=== PATIENT | male | born 1945 | race Caucasian/White ===

== ENCOUNTER → 2018-02-17 | Outpatient (CLI) | payer MEDICARE ==
--- NOTE | 2018-02-17 13:47 | ECHOS ---
STRESS ECHOCARDIOGRAM INDICATIONS: Chest pain. MEDICATIONS: Flomax, simvastatin. BASELINE HEART RATE: 57 BASELINE BLOOD PRESSURE: 135/75 MAXIMUM HEART RATE: 139 MAXIMUM BLOOD PRESSURE: 188/66 85% MPHR: 127 100% MPHR: 149 METS: 10.3 MAXIMUM STAGE REACHED: 3 TOTAL EXERCISE TIME: 9:00 CLINICAL INFORMATION: Baseline rhythm is sinus mechanism, rate 57, normal axis and intervals, cannot exclude inferior wall myocardial infarction. Baseline blood pressure 135/75 mmHg. Patient exercised on Rosales protocol for 9 minutes reaching peak rate of 139 beats per minute which is equal to 93% maximum predicted heart rate. Peak blood pressure 188/66 mmHg. Test was terminated due to fatigue. There was no chest pain. Electrocardiograph monitoring revealed rare PACs and PVCs. There was no evidence of diagnostic ischemic ST deviation. FINDINGS: Baseline echocardiogram revealed normal wall motion. At peak exercise, there was normal wall motion augmentation with no hypokinesis or dyskinesis. CONCLUSION: 1. Good exercise tolerance with normal cardiac response to exercise. 2. Normal stress echocardiogram with no evidence of stress-induced ischemia. MMODL / IJN: [id number] /
== END | disposition home or self-care (01) ==
LOC: RADNMMAIN 09:33
PROVIDERS: ATTEND Family Medicine
DX: R07.89 Other chest pain (principal)
CPT/HCPCS: 93351

== ENCOUNTER → 2018-07-22 | Outpatient (CLI) | payer MEDICARE ==
[2018-07-22 17:13] LABS: Appearance,BF Cloudy; Color,BF Yellow; Nucleated Cells, Body Fluid 910 /uL; RBC, Body Fluid 5990 /uL
[2018-07-22 17:44] LABS: Mononuclear WBC,Body Fluid 91 %; Polynuclear WBC,Body Fluid 9 %; Total Cells Counted,Body Fluid 100
== END | disposition home or self-care (01) ==
LOC: LABWHC1 15:35
PROVIDERS: ATTEND Orthopaedic Surgery
DX: M17.12 Unilateral primary osteoarthritis, left knee (principal)
CPT/HCPCS: 89050; 89060

== ENCOUNTER 2018-08-15 05:20 | Emergency (ER) | payer MEDICARE ==
--- NOTE | 2018-08-15 07:32 | ED ---
Extremity Problem HPI - General Chief complaint: Extremity Problem,Nontraumatic Stated complaint: left leg pain Time Seen by Provider: 08/15/18 07:10 Source: patient, RN notes reviewed Mode of arrival: ambulatory Limitations: no limitations - History of Present Illness Initial comments: This is a 73-year-old male with a recent history of pulmonary embolism in May of this year was on blood thinners who states he woke up this morning sharp pain in his left calf. He is concerned he may have developed a DVT. She does state the pain was sharp mid to lateral posterior calf/leg no other complaints such as fevers chills nausea vomiting sweats chest pain. 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 fib and a apparently was not in A. fib. MD Complaint: extremity pain - Related Data Home Medications Medication Instructions Recorded Confirmed Apixaban [Eliquis] 5 mg PO BID 07/24/18 08/15/18 Multivitamin [Multivitamins Adult 1 tab PO DAILY 07/24/18 08/15/18 Gummies] Propafenone HCl 150 mg PO BID 07/24/18 08/15/18 Semaglutide [Ozempic] 0.25 mg SQ WEEKLY 07/24/18 08/15/18 Sildenafil Citrate [Sildenafil] 20 mg PO DAILY PRN 07/24/18 08/15/18 Simvastatin [Zocor] 10 mg PO HS 07/24/18 08/15/18 Tamsulosin HCl [Flomax] 0.4 mg PO HS 07/24/18 08/15/18 metFORMIN HCL [Glucophage] 500 mg PO W/LUNCH 07/24/18 08/15/18 Allergies Allergy/AdvReac Type Severity Reaction Status Date / Time No Known Allergies Allergy Verified 08/15/18 07:44 Review of Systems ROS Statement: Those systems with pertinent positive or pertinent negative responses have been documented in the HPI. ROS Other: All systems not noted in ROS Statement are negative. Past Medical History Past Medical History: Atrial Fibrillation, Hyperlipidemia, Pulmonary Embolus (PE) History of Any Multi-Drug Resistant Organisms: None Reported Additional Past Surgical History / Comment(s): procedure to dissolve blood clots in the lung Past Anesthesia/Blood Transfusion Reactions: No Reported Reaction Past Psychological History: No Psychological Hx Reported Smoking Status: Never smoker General Exam - General Exam Comments Initial Comments: This a well-developed well-nourished awake alert oriented 3 male Limitations: no limitations General appearance: alert, in no apparent distress Head exam: Present: atraumatic, normocephalic, normal inspection Eye exam: Present: normal appearance, PERRL, EOMI. Absent: scleral icterus, conjunctival injection, periorbital swelling ENT exam: Present: normal exam, mucous membranes moist Neck exam: Present: normal inspection. Absent: tenderness, meningismus, lymphadenopathy Respiratory exam: Present: normal lung sounds bilaterally. Absent: respiratory distress, wheezes, rales, rhonchi, stridor Cardiovascular Exam: Present: regular rate, normal rhythm, normal heart sounds, other (Some extrasystoles noted). Absent: systolic murmur, diastolic murmur, rubs, gallop, clicks GI/Abdominal exam: Present: soft, normal bowel sounds. Absent: distended, tenderness, guarding, rebound, rigid Extremities exam: Present: normal inspection, full ROM, normal capillary refill. Absent: tenderness, pedal edema, joint swelling, calf tenderness Back exam: Present: normal inspection Neurological exam: Present: alert, oriented X3, CN II-XII intact Psychiatric exam: Present: normal affect, normal mood Skin exam: Present: warm, dry, intact, normal color. Absent: rash Course Vital Signs 08/15/18 05:25 Temperature 97.9 F Pulse Rate 70 Respiratory 20 Rate O2 Sat by Pulse 95 Oximetry Medical Decision Making - Medical Decision Making I did discuss findings with the patient will be discharged the presentation consistent with muscle spasm - Lab Data Result diagrams: 08/15/18 07:35 08/15/18 07:43 Lab Results 08/15/18 08/15/18 08/15/18 Range/Units 07:35 07:35 07:43 WBC 5.6 (3.8-10.6) k/uL RBC 4.47 (4.30-5.90) m/uL Hgb 13.8 (13.0-17.5) gm/dL Hct 42.2 (39.0-53.0) % MCV 94.4 (80.0-100.0) fL MCH 30.8 (25.0-35.0) pg MCHC 32.6 (31.0-37.0) g/dL RDW 13.3 (11.5-15.5) % Plt Count 195 (150-450) k/uL Neutrophils % 64 % Lymphocytes % 22 % Monocytes % 7 % Eosinophils % 4 % Basophils % 0 % Neutrophils # 3.6 (1.3-7.7) k/uL Lymphocytes # 1.3 (1.0-4.8) k/uL Monocytes # 0.4 (0-1.0) k/uL Eosinophils # 0.2 (0-0.7) k/uL Basophils # 0.0 (0-0.2) k/uL Sodium 140 (137-145) mmol/L Potassium 4.8 (3.5-5.1) mmol/L Chloride 109 H (98-107) mmol/L Carbon Dioxide 23 (22-30) mmol/L Anion Gap 8 mmol/L BUN 26 H (9-20) mg/dL Creatinine 1.23 (0.66-1.25) mg/dL Est GFR (CKD-EPI)AfAm 68 (>60 ml/min/1.73 sqM) Est GFR (CKD-EPI)NonAf 59 (>60 ml/min/1.73 sqM) Glucose 99 (74-99) mg/dL Calcium 9.1 (8.4-10.2) mg/dL Magnesium 2.2 (1.6-2.3) mg/dL Total Bilirubin 0.6 (0.2-1.3) mg/dL AST 16 L (17-59) U/L ALT 31 (21-72) U/L Alkaline Phosphatase 61 (38-126) U/L Total Protein 7.0 (6.3-8.2) g/dL Albumin 4.1 (3.5-5.0) g/dL - Radiology Data Radiology results: report reviewed (I did review the imaging and reports available no DVT), image reviewed Disposition Clinical Impression: Muscle spasm of calf Disposition: HOME SELF-CARE Condition: Good Instructions (If sedation given, give patient instructions): Muscle Spasm (ED) Is patient prescribed a controlled substance at d/c from ED?: No Referrals: Richard German MD [Primary Care Provider] - 1-2 days
[2018-08-15 07:48] LABS: Basophils % (A) 0 %; Eosinophils # (A) 0.2 k/uL (0-0.7); Eosinophils % (A) 4 %; HCT 42.2 % (39.0-53.0); HGB 13.8 gm/dL (13.0-17.5); Lymphocytes # (A) 1.3 k/uL (1.0-4.8); Lymphocytes % (A) 22 %; MCH 30.8 pg (25.0-35.0); MCHC 32.6 g/dL (31.0-37.0); MCV 94.4 fL (80.0-100.0); Mean Platelet Volume 7.2; Monocytes # (A) 0.4 k/uL (0-1.0); Monocytes % (A) 7 %; Neutrophils # (A) 3.6 k/uL (1.3-7.7); Neutrophils % (A) 64 %; Platelet Count 195 k/uL (150-450); RBC 4.47 m/uL (4.30-5.90); RDW 13.3 % (11.5-15.5); WBC 5.6 k/uL (3.8-10.6)
[2018-08-15 09:41] LABS: Albumin 4.1 g/dL (3.5-5.0); Calcium 9.1 mg/dL (8.4-10.2); Potassium 4.8 mmol/L (3.5-5.1); Total Bilirubin 0.6 mg/dL (0.2-1.3)
[2018-08-15 10:45] VITALS: BP 141/84; PULSE 61; RESP 18; TEMP 97.7
--- NOTE | 2018-08-15 15:21 | US ---
EXAMINATION TYPE: US venous doppler duplex LE LT DATE OF EXAM: 08/15/2018 8:20 AM COMPARISON: NONE CLINICAL HISTORY: Pain. SIDE PERFORMED: Left TECHNIQUE: The lower extremity deep venous system is examined utilizing real time linear array sonog juli with graded compression, doppler sonography and color-flow sonography. VESSELS IMAGED: External Iliac Vein (EIV) Common Femoral Vein Deep Femoral Vein Greater Saphenous Vein * Femoral Vein Popliteal Vein Small Saphenous Vein * Proximal Calf Veins (* superficial vessels) Left Leg: Negative for DVT Small posterior branch and large anterior branch both appear patent. IMPRESSION: No evidence of DVT at this time.
== END 2018-08-15 10:45 | disposition home or self-care (01) ==
LOC: EC 05:20
DX: M62.831 Muscle spasm of calf (principal); I49.1 Atrial premature depolarization; I48.91 Unspecified atrial fibrillation; E78.5 Hyperlipidemia, unspecified; Z79.01 Long term (current) use of anticoagulants; Z79.84 Long term (current) use of oral hypoglycemic drugs; Z79.899 Other long term (current) drug therapy; Z86.711 Personal history of pulmonary embolism
CPT/HCPCS: 36415; 80053; 83735; 85025; 93005; 99284

== ENCOUNTER 2019-12-10 07:06 | Day surgery (SDC) | payer MEDICARE ==
[2019-12-09 08:51] VITALS: BMI 28.8
[~2019-12-10 07:06] MED LIST: LACTATED RINGERS 1,000 ML IV SCH; LIDOCAINE 1% (10MG/ML) FOR IV START INTRADERMA PRN
[2019-12-10 07:31] VITALS: RESP 16; TEMP 97.1
[2019-12-10 07:37] LABS: Glucose,Whole Blood 87 mg/dL (75-99)
[2019-12-10] MEDS ORDERED: PROPOFOL 10 MG/ML 20 ML VIAL IV ONE (08:20)
[2019-12-10] MEDS ORDERED: LIDOCAINE 1% INJ 10MG/ML (20 ML MDV) ONE (08:20)
--- NOTE | 2019-12-10 08:58 | P.PCN ---
Date of Procedure: 12/10/19 Description of Procedure: Brief history: Patient is a pleasant 74-year-old male presenting for outpatient EGD and colonoscopy for evaluation of GERD and blood in the stool. He reports last colonoscopy approximately 3-4 years ago. Denies any family history of colon cancer. He does report some loose bowel movements over the past 6 weeks. Procedure performed: Esophagogastroduodenoscopy with biopsy Colonoscopy with polypectomy and biopsy Estimated blood loss: Minimal. Preoperative diagnosis: GERD, blood in stool, patient reports last colonoscopy 3-4 years ago Anesthesia: MAC Procedure: After informed consent was obtained from the patient was brought into the endoscopy unit and IV sedation was administered by anesthesia under continuous monitoring. Initially upper endoscopy was done. The Olympus GF 190 video endoscope was inserted into the mouth and esophagus intubated without any difficulty and was gradually advanced into the stomach and duodenum and carefully examined. The bulb and second part of the duodenum appeared normal, with biopsies taken to rule out celiac sprue. The scope was then withdrawn into the stomach adequately insufflated with air and upon careful examination the antrum and body, cardia and fundus appeared normal, except for some mild pu nctate erythema in the antrum and body suggestive of mild gastritis with biopsies taken. The scope was then withdrawn into the esophagus. The GE junction was located at 41 cm to the incisors and biopsied. It appeared regular with no erythema erosions or ulcerations. Rest of the esophagus appeared normal. Patient tolerated the procedure well. At this time the patient continued to remain sedation. Initial digital rectal examination was normal. Olympus CF 190 video colonoscope was then inserted into the rectum and gradually advanced to the cecum without any difficulty. Careful examination was performed as the scope was gradually being withdrawn. The prep was excellent. The cecum, ascending colon, transverse colon, descending colon, sigmoid colon and rectum appeared normal, with biopsies taken of the right and left colon due to altered bowel function. The terminal ileum was intubated and appeared normal. A few scattered diverticula noted in the left colon. 2 diminutive polyps measuring 2 mm in size removed from the ascending colon and transverse colon with cold forcep polypectomy. Retroflexion was performed in the rectum and no lesions were noted, low-grade internal hemorrhoids. Patient tolerated the procedure well. Impression: 1. Mild gastritis. Biopsies taken of the duodenum, antrum body and GE junction 2. 2 diminutive polyps removed from the ascending colon and transverse colon with cold forcep polypectomy. Mild left colonic diverticulosis. Low-grade internal hemorrhoids. Biopsies of the right and left colon due to altered bowel function. Recommendations: Findings of this examination were discussed with the patient as well as his family. Okay to resume diet. Okay to resume medications. Await pathology from biopsies and polypectomy. Would recommend repeat colonoscopy in 7 years for colon polyps pending pathology from polypectomy
[2019-12-10 09:13] VITALS: BP 149/81; PULSE 62
== END 2019-12-10 09:40 | disposition home or self-care (01) ==
LOC: ORWHC2ENDO 07:06
PROVIDERS: ATTEND Internal Medicine
DX: D12.2 Benign neoplasm of ascending colon (principal); K63.5 Polyp of colon; K63.89 Other specified diseases of intestine; K57.31 Diverticulosis of large intestine without perforation or abscess with bleeding; K64.8 Other hemorrhoids; K29.51 Unspecified chronic gastritis with bleeding; K21.0 Gastro-esophageal reflux disease with esophagitis; K22.70 Barrett's esophagus without dysplasia; I48.91 Unspecified atrial fibrillation; G47.33 Obstructive sleep apnea (adult) (pediatric); E11.9 Type 2 diabetes mellitus without complications; Z79.84 Long term (current) use of oral hypoglycemic drugs; Z79.899 Other long term (current) drug therapy; Z79.01 Long term (current) use of anticoagulants; Z90.49 Acquired absence of other specified parts of digestive tract; Z90.89 Acquired absence of other organs; Z98.890 Other specified postprocedural states; Z86.711 Personal history of pulmonary embolism
CPT/HCPCS: 88305; 45380; 43239; J2001; J2704

== ENCOUNTER → 2020-03-03 | Outpatient (CLI) | payer MEDICARE | END | disposition home or self-care (01) | LOC: LABWHC1 10:50 | PROVIDERS: ATTEND Family Medicine | DX: R05 Cough (principal); R19.7 Diarrhea, unspecified; R06.02 Shortness of breath; Z20.828 Contact with and (suspected) exposure to other viral communicable diseases | CPT/HCPCS: 87635; C9803 ==

== ENCOUNTER 2023-02-03 10:39 | Observation (INO) | payer MEDICARE ==
[2023-02-03] MEDS ORDERED: NITROGLYCERIN OINT 1 INCH/GM PACKET TOPICAL STA (10:56)
[2023-02-03] MEDS ORDERED: ASPIRIN 81 MG PO STA (10:56)
--- NOTE | 2023-02-03 10:59 | ED ---
General Adult HPI - General Chief complaint: Chest Pain Stated complaint: chest pains Time Seen by Provider: 02/03/23 10:47 Source: patient, RN notes reviewed Mode of arrival: ambulatory Limitations: no limitations - History of Present Illness Initial comments: Patient is a pleasant 77-year-old male presenting to the emergency department with concerns of chest discomfort. Onset of symptoms was a couple days ago. Discomfort is somewhat sharp in the right and left upper chest. No associated dyspnea, nausea, or diaphoresis. Patient does not have history of similar symptoms previously. Patient does have history of previous home in her embolism and is on eliquis. Patient also has history of previous heart problems however that does not feel similar to this. No leg pain or leg swelling. - Related Data Home Medications Medication Instructions Recorded Confirmed Apixaban [Eliquis] 5 mg PO BID 07/24/18 12/10/19 Multivitamin [Multivitamins Adult 1 tab PO DAILY 07/24/18 12/10/19 Gummies] Propafenone HCl 150 mg PO BID 07/24/18 12/10/19 Sildenafil Citrate 20 mg PO DAILY PRN 07/24/18 12/10/19 Simvastatin [Zocor] 10 mg PO HS 07/24/18 12/10/19 Tamsulosin HCl [Flomax] 0.4 mg PO HS 07/24/18 12/10/19 metFORMIN HCL [Glucophage] 500 mg PO W/LUNCH 07/24/18 12/10/19 Dulaglutide [Trulicity] 0.75 mg SQ Q8D 12/09/19 12/10/19 Allergies Allergy/AdvReac Type Severity Reaction Status Date / Time No Known Allergies Allergy Verified 02/03/23 10:43 Review of Systems ROS Statement: Those systems with pertinent positive or pertinent negative responses have been documented in the HPI. ROS Other: All systems not noted in ROS Statement are negative. Constitutional: Denies: fever Eyes: Denies: eye pain ENT: Denies: ear pain Respiratory: Denies: cough, dyspnea Cardiovascular: Reports: as per HPI, chest pain Endocrine: Denies: fatigue Gastrointestinal: Denies: abdominal pain Genitourinary: Denies: dysuria Musculoskeletal: Denies: back pain Skin: Denies: rash Past Medical History Past Medical History: Atrial Fibrillation, Hyperlipidemia, Pulmonary Embolus (PE) Additional Past Medical History / Comment(s): HAS BEEN HAVING DIARRHEA FOR PAST 6 WEEKS. History of Any Multi-Drug Resistant Organisms: None Reported Past Surgical History: Appendectomy, Tonsillectomy Additional Past Surgical History / Comment(s): procedure to dissolve blood clots in the lung. COLONOSCOPY Past Anesthesia/Blood Transfusion Reactions: No Reported Reaction Past Psychological History: No Psychological Hx Reported Smoking Status: Never smoker Past Alcohol Use History: Rare Past Drug Use History: None Reported - Past Family History Mother Family Medical History: No Reported History General Exam Limitations: no limitations General appearance: alert, in no apparent distress Head exam: Present: normocephalic Eye exam: Present: normal appearance Neck exam: Present: normal inspection Respiratory exam: Present: normal lung sounds bilaterally. Absent: chest wall tenderness Cardiovascular Exam: Present: regular rate, normal rhythm, normal heart sounds Expanded Peripheral pulses: 2+: Radial (R), Radial (L), Dorsalis Pedis (R), Dorsalis Pedis (L) GI/Abdominal exam: Present: soft. Absent: tenderness Extremities exam: Present: normal inspection. Absent: pedal edema, calf tenderness Neurological exam: Present: alert Psychiatric exam: Present: normal affect, normal mood Skin exam: Present: normal color Course Vital Signs 02/03/23 02/03/23 02/03/23 10:41 10:56 12:12 Temperature 98.3 F 98.2 F Pulse Rate 64 52 L 61 Respiratory 18 18 20 Rate Blood Pressure 175/93 168/84 179/94 O2 Sat by Pulse 98 97 98 Oximetry EKG Findings - EKG Results: EKG: interpreted by ERMD, sinus rhythm, normal axis, normal QRS, normal ST/T EKG shows: bradycardia Medical Decision Making - Medical Decision Making Repeat EKG also interpreted by myself shows sinus bradycardia with rate of 52. For screening AV block ME of 201. Normal axis. Septal Q waves. No acute ST change. Was pt. sent in by a medical professional or institution (, PA, [employer], urgent care, hospital, or fpc...) When possible be specific @ -[No] Did you speak to anyone other than the patient for history (EMS, parent, family, police, friend...)? What history was obtained from this source @ -[No] Did you review nursing and triage notes (agree or disagree)? Why? @ -[I reviewed and agree with nursing and triage notes] Were old charts reviewed (outside hosp., previous admission, EMS record, old EKG, old radiological studies, urgent care reports/EKG's, fpc records)? Report findings @ -Previous labs reviewed Differential Diagnosis (chest pain, altered mental status, abdominal pain women, abdominal pain men, vaginal bleeding, weakness, fever, dyspnea, syncope, headache, dizziness, GI bleed, back pain, seizure, CVA, palpatations, mental health, musculoskeletal)? @ -Differential Chest Pain: Stable Angina, Unstable Angina, STEMI, NSTEMI Aortic Dissection, Pneumothorax, Musculoskeletal, Esophageal Spasm GERD, Cholecystitis, Pancreatitis, Zoster, this is not meant to be an all-inclusive list. EKG interpreted by me (3pts min.). @ -[As above] X-rays interpreted by me (1pt min.). @ -Chest x-ray shows no acute process. CT interpreted by me (1pt min.). @ -[None done] U/S interpreted by me (1pt. min.). @ -[None done] What testing was considered but not performed or refused? (CT, X-rays, U/S, labs)? Why? @ -[None] What meds were considered but not given or refused? Why? @ -[None] Did you discuss the management of the patient with other professionals (professionals i.e. , PA, [employer], lab, RT, psych nurse, social science instructor, homogenizer operator, teacher, commercial credit officer, block and case maker)? Give summary @ -Case was discussed with Dr. German, who will admit his patient. Was smoking cessation discussed for >3mins.? @ -[No] Was critical care preformed (if so, how long)? @ -[No] Were there social determinants of health that impacted care today? How? (Homelessness, low income, unemployed, alcoholism, drug addiction, transportation, low edu. Level, literacy, decrease access to med. care, detention, rehab)? @ -[No] Was there de-escalation of care discussed even if they declined (Discuss DNR or withdrawal of care, Hospice)? DNR status @ -[No] What co-morbidities impacted this encounter? (DM, HTN, Smoking, COPD, CAD, Cancer, CVA, ARF, Chemo, Hep., AIDS, mental health diagnosis, sleep apnea, morbid obesity)? @ -[None] Was patient admitted / discharged? Hospital course, mention meds given and route, prescriptions, significant lab abnormalities, going to OR and other pertinent info. @ -Patient reevaluated and resting comfortably in bed. Patient is updated on results and plan. Patient will be admitted. Cardiac consult. Admission orders placed. Undiagnosed new problem with uncertain prognosis? @ -[No] Drug Therapy requiring intensive monitoring for toxicity (Heparin, Nitro, Insulin, Cardizem)? @ -[No] Were any procedures done? @ -[No] Diagnosis/symptom? @ -Chest pain Acute, or Chronic, or Acute on Chronic? @ -Acute Uncomplicated (without systemic symptoms) or Complicated (systemic symptoms)? @ -[default] Side effects of treatment? @ -[No] Exacerbation, Progression, or Severe Exacerbation? @ -[No] Poses a threat to life or bodily function? How? (Chest pain, USA, PA, pneumonia, PE, COPD, DKA, ARF, appy, cholecystitis, CVA, Diverticulitis, Homicidal, Suicidal, threat to staff... and all critical care pts) @ -Potential threat to cardiac function and life. - Lab Data Result diagrams: 02/03/23 11:08 02/03/23 11:08 Lab Results 02/03/23 02/03/23 02/03/23 Range/Units 11:08 11:08 11:08 WBC 6.7 (3.8-10.6) k/uL RBC 4.50 (4.30-5.90) m/uL Hgb 14.5 (13.0-17.5) gm/dL Hct 44.5 (39.0-53.0) % MCV 98.8 (80.0-100.0) fL MCH 32.2 (25.0-35.0) pg MCHC 32.6 (31.0-37.0) g/dL RDW 12.5 (11.5-15.5) % Plt Count 154 (150-450) k/uL MPV 7.9 Neutrophils % 69 % Lymphocytes % 22 % Monocytes % 5 % Eosinophils % 2 % Basophils % 0 % Neutrophils # 4.6 (1.3-7.7) k/uL Lymphocytes # 1.5 (1.0-4.8) k/uL Monocytes # 0.3 (0-1.0) k/uL Eosinophils # 0.1 (0-0.7) k/uL Basophils # 0.0 (0-0.2) k/uL PT 10.5 (10.0-12.5) sec INR 1.0 (<1.2) APTT 23.3 (22.0-30.0) sec D-Dimer 0.21 (<0.60) mg/L FEU Sodium 139 (137-145) mmol/L Potassium 4.1 (3.5-5.1) mmol/L Chloride 104 (98-107) mmol/L Carbon Dioxide 25 (22-30) mmol/L Anion Gap 10 mmol/L BUN 19 (9-20) mg/dL Creatinine 0.94 (0.66-1.25) mg/dL Est GFR (CKD-EPI)AfAm >90 (>60 ml/min/1.73 sqM) Est GFR (CKD-EPI)NonAf 79 (>60 ml/min/1.73 sqM) Glucose 118 H (74-99) mg/dL Calcium 9.2 (8.4-10.2) mg/dL Magnesium 2.0 (1.6-2.3) mg/dL Total Bilirubin 0.8 (0.2-1.3) mg/dL AST 22 (17-59) U/L ALT 27 (4-49) U/L Alkaline Phosphatase 62 (38-126) U/L Troponin I (0.000-0.034) ng/mL Total Protein 6.9 (6.3-8.2) g/dL Albumin 4.0 (3.5-5.0) g/dL 02/03/23 Range/Units 11:08 WBC (3.8-10.6) k/uL RBC (4.30-5.90) m/uL Hgb (13.0-17.5) gm/dL Hct (39.0-53.0) % MCV (80.0-100.0) fL MCH (25.0-35.0) pg MCHC (31.0-37.0) g/dL RDW (11.5-15.5) % Plt Count (150-450) k/uL MPV Neutrophils % % Lymphocytes % % Monocytes % % Eosinophils % % Basophils % % Neutrophils # (1.3-7.7) k/uL Lymphocytes # (1.0-4.8) k/uL Monocytes # (0-1.0) k/uL Eosinophils # (0-0.7) k/uL Basophils # (0-0.2) k/uL PT (10.0-12.5) sec INR (<1.2) APTT (22.0-30.0) sec D-Dimer (<0.60) mg/L FEU Sodium (137-145) mmol/L Potassium (3.5-5.1) mmol/L Chloride (98-107) mmol/L Carbon Dioxide (22-30) mmol/L Anion Gap mmol/L BUN (9-20) mg/dL Creatinine (0.66-1.25) mg/dL Est GFR (CKD-EPI)AfAm (>60 ml/min/1.73 sqM) Est GFR (CKD-EPI)NonAf (>60 ml/min/1.73 sqM) Glucose (74-99) mg/dL Calcium (8.4-10.2) mg/dL Magnesium (1.6-2.3) mg/dL Total Bilirubin (0.2-1.3) mg/dL AST (17-59) U/L ALT (4-49) U/L Alkaline Phosphatase (38-126) U/L Troponin I <0.012 (0.000-0.034) ng/mL Total Protein (6.3-8.2) g/dL Albumin (3.5-5.0) g/dL Disposition Clinical Impression: Chest pain Disposition: ADMITTED IP TO THIS HOSP Is patient prescribed a controlled substance at d/c from ED?: No Referrals: Richard German MD [Primary Care Provider] - 1-2 days Time of Disposition: 12:29
[2023-02-03 11:24] LABS: Basophils % (A) 0 %; Eosinophils # (A) 0.1 k/uL (0-0.7); Eosinophils % (A) 2 %; HCT 44.5 % (39.0-53.0); HGB 14.5 gm/dL (13.0-17.5); Lymphocytes # (A) 1.5 k/uL (1.0-4.8); Lymphocytes % (A) 22 %; MCH 32.2 pg (25.0-35.0); MCHC 32.6 g/dL (31.0-37.0); MCV 98.8 fL (80.0-100.0); Mean Platelet Volume 7.9; Monocytes # (A) 0.3 k/uL (0-1.0); Monocytes % (A) 5 %; Neutrophils # (A) 4.6 k/uL (1.3-7.7); Neutrophils % (A) 69 %; Platelet Count 154 k/uL (150-450); RDW 12.5 % (11.5-15.5); WBC 6.7 k/uL (3.8-10.6)
[2023-02-03 11:40] LABS: ALT 27 U/L (4-49); AST 22 U/L (17-59); African American GFR (CKD) >90 (>60 ml/min/1.73 sqM); Alkaline Phosphatase 62 U/L (38-126); Anion Gap 10 mmol/L; Blood Urea Nitrogen 19 mg/dL (9-20); Calcium 9.2 mg/dL (8.4-10.2); Carbon Dioxide 25 mmol/L (22-30); Chloride 104 mmol/L (98-107); Glucose 118 mg/dL (74-99); Non-African American GFR(CKD) 79 (>60 ml/min/1.73 sqM); Potassium 4.1 mmol/L (3.5-5.1); Sodium 139 mmol/L (137-145); Total Bilirubin 0.8 mg/dL (0.2-1.3); Total Protein 6.9 g/dL (6.3-8.2)
[2023-02-03 11:44] LABS: Partial Thromboplastin Time 23.3 sec (22.0-30.0); Prothrombin Time 10.5 sec (10.0-12.5)
--- NOTE | 2023-02-03 11:56 | XR ---
EXAMINATION TYPE: XR chest 2V DATE OF EXAM: 02/03/2023 11:52 AM CLINICAL INDICATION:Male, 77 years old with history of Chest Pain; [facility] COMPARISON: None. TECHNIQUE: XR chest 2V Frontal and lateral views of the chest. FINDINGS: Lungs/Pleura: There is no evidence of pleural effusion, focal consolidation, or pneumothorax. Pulmonary vascularity: Unremarkable. Heart/mediastinum: Cardiomediastinal silhouette is unremarkable. Musculoskeletal: No acute osseous pathology. IMPRESSION: No acute cardiopulmonary disease/process.
[2023-02-03] MEDS ORDERED: NITROGLYCERIN SL TABS 0.4 MG TAB SUBLINGUAL PRN (12:29)
[2023-02-03] MEDS: NITROGLYCERIN OINT 1 INCH/GM PACKET TOPICAL SCH ×2 (18:23→22:46)
[2023-02-03] MEDS ORDERED: DAPAGLIFLOZIN PROPANEDIOL 5 MG TABLET PO SCH (21:00)
[2023-02-03] MEDS ORDERED: ATORVASTATIN 40 MG TAB PO SCH (21:00)
[2023-02-03] MEDS: TAMSULOSIN 0.4 MG CAP.ER.24H PO SCH (21:07)
[2023-02-03] MEDS: PROPAFENONE 150 MG TAB PO SCH (21:07)
[2023-02-03] MEDS: APIXABAN 5 MG TAB PO SCH (21:07)
[2023-02-04] MEDS: NITROGLYCERIN OINT 1 INCH/GM PACKET TOPICAL SCH (05:18)
[2023-02-04 08:25] VITALS: RESP 16
[2023-02-04 09:00] LABS: Chol/HDL Ratio 2.03 Ratio; LDL Cholesterol,Calculated 39.9 mg/dL (0.0-131.0)
[2023-02-04] MEDS ORDERED: ASPIRIN 325 MG TAB PO SCH (09:00)
[2023-02-04] MEDS ORDERED: DAPAGLIFLOZIN PROPANEDIOL 5 MG TABLET PO SCH (09:00)
[2023-02-04] MEDS ORDERED: FINASTERIDE 5 MG TAB PO SCH (09:00)
[2023-02-04] MEDS: TAMSULOSIN 0.4 MG CAP.ER.24H PO SCH (09:47)
[2023-02-04] MEDS: PROPAFENONE 150 MG TAB PO SCH (09:47)
[2023-02-04] MEDS: APIXABAN 5 MG TAB PO SCH (09:47)
--- NOTE | 2023-02-04 11:49 | P.CRDCN ---
History of Present Illness History of present illness: HISTORY OF PRESENT ILLNESS: This is a 77-year-old male with a past medical history significant for pulmonary embolism, atrial fibrillation, hyperlipidemia, diabetes, and obstructive sleep apnea. Patient follows in the office with Dr. Tadeo. We have been asked to see the patient in consultation for chest pain. Patient examined at the bedside. Patient states over the past several weeks he has been having a random sensation in his chest. He states it feels like a twinge. He further describes it as feeling an extra heartbeat or to that gives him a sensation in his chest but he states he does not have any chest pain or discomfort when this happens. He denies any shortness of breath. He denies feeling his heart race. He denies any dizziness or lightheadedness. Cardiac enzymes are negative 3. EKG and telemetry reveals sinus mechanism with PACs. * EKG reveals sinus mechanism with PACs. No signs of acute ischemia. * Chest xray negative for acute process * Laboratory data: D-dimer 0.21. Troponin negative 3. * Most recent echocardiogram obtained in December 2020 revealed normal ejection fraction, mild MR, mild TR * Patient underwent stress test in December 2020 which was negative for ischemia REVIEW OF SYSTEMS: At the time of my exam: CONSTITUTIONAL: Denies fever or chills. HEENT: Denies blurred vision, vision changes, or eye pain. Denies hemoptysis CARDIOVASCULAR: Denies chest pain. Denies orthopnea. Denies PND. Denies palpitations RESPIRATORY: Denies shortness of breath. GASTROINTESTINAL: Denies abdominal pain. Denies nausea or vomiting. HEMATOLOGIC: Denies bleeding disorders. GENITOURINARY: Denies any blood in urine. SKIN: Denies pruitis. Denies rash. PHYSICAL EXAM: VITAL SIGNS: Reviewed. GENERAL: Well-developed in no acute distress. HEENT: Head is normocephalic. Pupils are equal, round. Sclerae anicteric. Mucous membranes of the mouth are moist. Neck supple. No JVD or thyromegaly LUNGS: Respirations even and unlabored. Lungs essentially clear to auscultation bilaterally. HEART: Regular rate and rhythm. S1 and S2 heard. Systolic murmur noted. ABDOMEN: Soft. Nondistended. Nontender. EXTREMITIES: Normal range of motion. No clubbing or cyanosis. Peripheral pulses intact. No lower extremity edema NEUROLOGIC: Awake and alert. Oriented x 3. ASSESSMENT: Palpitations, likely secondary to PACs Chest pain, rule out, patient denies having any chest pain or pressure. Paroxysmal atrial fibrillation History of pulmonary embolism Hyperlipidemia Diabetes Obstructive sleep apnea PLAN: An acute coronary event has been ruled out Resume home cardiac medications Obtain 2-D echo to assess cardiac shock and function Will consider outpatient stress test Patient is currently stable from a cardiac perspective Further recommendations pending patient's course Nurse practitioner note has been reviewed by physician. Signing provider agrees with the documented findings, assessment, and plan of care. Past Medical History Past Medical History: Atrial Fibrillation, Hyperlipidemia, Pulmonary Embolus (PE) Additional Past Medical History / Comment(s): HAS BEEN HAVING DIARRHEA FOR PAST 6 WEEKS. History of Any Multi-Drug Resistant Organisms: None Reported Past Surgical History: Appendectomy, Tonsillectomy Additional Past Surgical History / Comment(s): procedure to dissolve blood clots in the lung. COLONOSCOPY Past Anesthesia/Blood Transfusion Reactions: No Reported Reaction Past Psychological History: No Psychological Hx Reported Smoking Status: Never smoker Past Alcohol Use History: Rare Past Drug Use History: None Reported - Past Family History Mother Family Medical History: No Reported History Medications and Allergies Home Medications Medication Instructions Recorded Confirmed Type Apixaban [Eliquis] 5 mg PO BID 07/24/18 02/03/23 History Sildenafil Citrate 60 mg PO DAILY PRN 07/24/18 02/03/23 History Tamsulosin HCl [Flomax] 0.4 mg PO BID 07/24/18 02/03/23 History Dapagliflozin Propanediol [Farxiga] 5 mg PO DAILY 02/03/23 02/03/23 History Ergocalciferol (Vitamin D2) 1,250 mcg PO Q30D 02/03/23 02/03/23 History [Drisdol (50,000 Iu)] Finasteride [Proscar] 5 mg PO DAILY 02/03/23 02/03/23 History Propafenone [Rythmol] 150 mg PO BID 02/03/23 02/03/23 History Rosuvastatin [Crestor] 20 mg PO HS 02/03/23 02/03/23 History Allergies Allergy/AdvReac Type Severity Reaction Status Date / Time No Known Allergies Allergy Verified 02/03/23 13:42 Physical Exam Vitals: Vital Signs Temp Pulse Pulse Resp BP BP BP 02/04/23 07:00 98.5 F 60 16 163/78 02/04/23 02:18 97.6 F 76 15 105/57 02/03/23 20:00 59 L 02/03/23 19:16 98.4 F 59 L 16 122/63 02/03/23 16:10 98.2 F 58 L 20 133/70 02/03/23 14:47 51 L 14 163/87 02/03/23 12:45 52 L 14 158/85 02/03/23 12:12 61 20 179/94 Pulse Ox 02/04/23 07:00 97 02/04/23 02:18 95 02/03/23 20:00 02/03/23 19:16 95 02/03/23 16:10 98 02/03/23 14:47 98 02/03/23 12:45 02/03/23 12:12 98 Intake and Output 02/03/23 02/04/23 02/04/23 22:59 06:59 14:59 Intake Total 240 360 Balance 240 360 Intake: Oral 240 360 Other: # Voids 1 2 Weight 87.09 kg Results 02/03/23 11:08 02/03/23 11:08 Cardiac Enzymes 02/03/23 02/03/23 02/03/23 Range/Units 11:08 11:08 14:07 AST 22 (17-59) U/L Troponin I <0.012 <0.012 (0.000-0.034) ng/mL 02/03/23 Range/Units 19:16 AST (17-59) U/L Troponin I <0.012 (0.000-0.034) ng/mL Coagulation 02/03/23 Range/Units 11:08 PT 10.5 (10.0-12.5) sec APTT 23.3 (22.0-30.0) sec Lipids 02/04/23 Range/Units 05:36 Triglycerides 54.50 (0.00-149.00) mg/dL Cholesterol 100.00 (0.00-200.00) mg/dL HDL Cholesterol 49.20 (40.00-60.00) mg/dL Cholesterol/HDL Ratio 2.03 Ratio CBC 02/03/23 Range/Units 11:08 WBC 6.7 (3.8-10.6) k/uL RBC 4.50 (4.30-5.90) m/uL Hgb 14.5 (13.0-17.5) gm/dL Hct 44.5 (39.0-53.0) % Plt Count 154 (150-450) k/uL Comprehensive Metabolic Panel 02/03/23 Range/Units 11:08 Sodium 139 (137-145) mmol/L Potassium 4.1 (3.5-5.1) mmol/L Chloride 104 (98-107) mmol/L Carbon Dioxide 25 (22-30) mmol/L BUN 19 (9-20) mg/dL Creatinine 0.94 (0.66-1.25) mg/dL Glucose 118 H (74-99) mg/dL Calcium 9.2 (8.4-10.2) mg/dL AST 22 (17-59) U/L ALT 27 (4-49) U/L Alkaline Phosphatase 62 (38-126) U/L Total Protein 6.9 (6.3-8.2) g/dL Albumin 4.0 (3.5-5.0) g/dL Current Medications Generic Name Dose Route Start Last Admin Trade Name Freq PRN Reason Stop Dose Admin Apixaban 5 mg 02/03/23 21:00 02/04/23 09:47 Apixaban 5 Mg Tab PO 5 mg BID CARMELITA Administration Protocol Atorvastatin Calcium 40 mg 02/03/23 21:00 02/03/23 21:07 Atorvastatin 40 Mg Tab PO 40 mg HS CARMELITA Administration Dapagliflozin 5 mg 02/04/23 09:00 02/04/23 10:01 Dapagliflozin Propanediol 5 Mg Tablet PO Not Given DAILY CARMELITA Finasteride 5 mg 02/04/23 09:00 02/04/23 09:47 Finasteride 5 Mg Tab PO 5 mg DAILY CARMELITA Administration Nitroglycerin 0.4 mg 02/03/23 12:29 Nitroglycerin Sl Tabs 0.4 Mg Tab SUBLINGUAL Q5M PRN Chest Pain Propafenone HCl 150 mg 02/03/23 21:00 02/04/23 09:47 Propafenone 150 Mg Tab PO 150 mg BID CARMELITA Administration Tamsulosin HCl 0.4 mg 02/03/23 21:00 02/04/23 09:47 Tamsulosin 0.4 Mg Cap.Er.24h PO 0.4 mg BID CARMELITA Administration Intake and Output 02/03/23 02/04/23 02/04/23 22:59 06:59 14:59 Intake Total 240 360 Balance 240 360 Intake: Oral 240 360 Other: # Voids 1 2 Weight 87.09 kg 02/03/23 11:08 02/03/23 11:08
[2023-02-04 17:07] VITALS: BP 171/74; PULSE 54; TEMP 97.8
--- NOTE | 2023-02-04 17:57 | CA ---
Transthoracic Echo Report Name: Ciro Moore Age: 77 Gender: M : 1945 Exam Date: 02/04/2023 09:49 Exam Location: [facility] Ht (in): 68 Wt (lb): 192 Ordering Physician: Patricia Branch Attending/Referring Phys: [id number], Jose Carlos It Infrastructure Manager Amaya Carey RDCS Procedure CPT: Indications: LV function, CP Cardiac Hx: Technical Quality: Fair Contrast 1: Total Dose (mL): Contrast 2: Total Dose (mL): MEASUREMENTS (Male / Female) Normal Values 2D ECHO LV Diastolic Diameter PLAX 4.7 cm 4.2 - 5.9 / 3.9 - 5.3 cm LV Systolic Diameter PLAX 3.5 cm IVS Diastolic Thickness 1.4 cm 0.6 - 1.0 / 0.6 - 0.9 cm LVPW Diastolic Thickness 1.4 cm 0.6 - 1.0 / 0.6 - 0.9 cm LV Relative Wall Thickness 0.6 RV Internal Dim ED PLAX 3.1 cm LA Volume 99.0 cm??? 18 - 58 / 22 - 52 cm??? LA Volume Index 47.9 cm???/m??? 16 - 28 cm???/m??? M-MODE Aortic Root Diameter MM 3.3 cm LA Systolic Diameter MM 5.4 cm LA Ao Ratio MM 1.6 AV Cusp Separation MM 2.3 cm DOPPLER AV Peak Velocity 145.0 cm/s AV Peak Gradient 8.4 mmHg AV Mean Velocity 100.9 cm/s AV Mean Gradient 4.6 mmHg AV Velocity Time Integral 29.2 cm LVOT Peak Velocity 112.2 cm/s LVOT Peak Gradient 5.0 mmHg LVOT Velocity Time Integral 22.1 cm MV Area PHT 2.3 cm??? Mitral E Point Velocity 75.5 cm/s Mitral A Point Velocity 101.5 cm/s Mitral E to A Ratio 0.7 MV Deceleration Time 323.9 ms MV E' Velocity 5.3 cm/s Mitral E to MV E' Ratio 14.1 TR Peak Velocity 252.7 cm/s TR Peak Gradient 25.5 mmHg Right Ventricular Systolic Press 30.5 mmHg FINDINGS Left Ventricle Moderately increased septal wall thickness. Left ventricular cavity size normal. Normal left ventricular systolic function with no obvious regional wall motion abnormalities. Left ventricular ejection fraction is estimated at 55-60 %. Right Ventricle Normal right ventricular size and function. Right ventricular systolic pressure within normal limits. Right Atrium Normal right atrial size. Left Atrium Severely increased left atrial volume. Mildly increased left atrial area. Mitral Valve Structurally normal mitral valve. Mild mitral annular calcification. Mild mitral regurgitation. Aortic Valve No aortic valve stenosis or regurgitation. Tricuspid Valve Structurally normal tricuspid valve. Mild tricuspid regurgitation. Pulmonic Valve Trace pulmonic regurgitation. Pericardium No pericardial effusion. Aorta Normal size aortic root and proximal ascending aorta. CONCLUSIONS Normal LV systolic function mild mitral regurgitation Previewed by: Dr. Handy Cobb MD (Electronically Signed) Final Date: 04 February 2023 17:57
--- NOTE | 2023-02-06 12:46 | DS ---
DISCHARGE SUMMARY CHIEF COMPLAINT: Atypical chest pain. HISTORY OF PRESENT ILLNESS AND PHYSICAL EXAMINATION: Details of this man's history and physical can be found in the initial workup. LABORATORY STUDIES: While he was in the hospital, he had laboratory studies, details of which can be found in the laboratory section of his chart. COURSE IN THE HOSPITAL: After admission, he was placed on bedrest, started on intravenous fluids and had serial EKGs and enzymes, all of which were normal. He was seen by Cardiology. It was felt that his pain was not typical at all and that he could be discharged. He will go home on his usual activity, diet, and medication and will follow up in the office in several days. FINAL DIAGNOSES: 1. Atypical chest pain. 2. History of atrial fibrillation. OPERATIONS: None. CONSULTATION: Cardiology. He is improved. MMODL / IJN: [id number] /
--- NOTE | 2023-02-06 22:19 | HP ---
HISTORY AND PHYSICAL CHIEF COMPLAINT: Chest pain. HISTORY OF PRESENT ILLNESS: This is the first known admission for this 77-year-old white male. He has a history of hypertension. He also has a history of atrial fibrillation. He had had some mild, sharp, point-like pain in the anterior chest intermittently. He finally decided that he should come in and have things checked out. He has had no diaphoresis, shortness of breath, relationship to exertion, etc. In the emergency room, his evaluation was negative. Past medical history, family history, and personal and social histories are otherwise unrelated. He is on rosuvastatin, Eliquis, Farxiga, propafenone, tamsulosin, finasteride, and vitamin D. He does not smoke or drink. PHYSICAL EXAMINATION: VITAL SIGNS: Normal. Blood pressure 128/74, pulse 98 and regular, and respirations are 14. GENERAL: Appeared to be well developed, well nourished, no acute distress. SKIN: Color is normal. Skin is warm and dry. LYMPH NODES: Not enlarged. HEAD, EARS, EYES, NOSE, MOUTH, AND THROAT: Normal. NECK: Neck veins are not distended. Thyroid is not enlarged. CHEST: Clear. CARDIAC: Normal. ABDOMEN: Soft. Nontender. EXTREMITIES: Normal. NEUROLOGICAL: He is intact. He is admitted to the hospital with diagnoses of: 1. Atypical chest pain. 2. History of atrial fibrillation. PLAN: 1. Bed rest. 2. IV fluids. 3. Telemetry. 4. Serial EKGs and enzymes. 5. Cardiology consult. MMODL / IJN: [id number] /
== END 2023-02-04 16:50 | disposition left against medical advice (07) ==
LOC: EC 10:39 → 6NMEDSUR 12:29
PROVIDERS: ADMIT Family Medicine; ATTEND Family Medicine
DX: R07.89 Other chest pain (principal); R00.2 Palpitations; I48.0 Paroxysmal atrial fibrillation; E78.5 Hyperlipidemia, unspecified; E11.9 Type 2 diabetes mellitus without complications; G47.33 Obstructive sleep apnea (adult) (pediatric); I10 Essential (primary) hypertension; Z86.711 Personal history of pulmonary embolism; Z79.01 Long term (current) use of anticoagulants; Z79.84 Long term (current) use of oral hypoglycemic drugs; Z79.899 Other long term (current) drug therapy; Z79.85 Long-term (current) use of injectable non-insulin antidiabetic drugs
CPT/HCPCS: 99285; 36415; 93005; 93306; 85379; 80061; 80053; 83735; 84484; 85025; 85610; 85730; 71046; G0378 ×2; S0138

== ENCOUNTER → 2023-04-29 | Outpatient (CLI) | payer MEDICARE ==
--- NOTE | 2023-04-29 15:48 | US ---
EXAMINATION TYPE: US gallbladder DATE OF EXAM: 04/29/2023 COMPARISON: NONE CLINICAL INDICATION: Male, 78 years old with history of R10.13 EPIGASTRIC PAIN; RUQ pain TECHNIQUE: Multiple sonographic images of the right upper quadrant are obtained. FINDINGS: EXAM MEASUREMENTS: Liver Length: 14 cm Gallbladder Wall: .4 cm CBD: .5 cm Right Kidney: 11.1 x 5.2 x 5.2 cm Pancreas: Obscured by bowel gas Liver: wnl Gallbladder: No stones seen, wall upper limits Evidence for sonographic Rubalcava's sign: No CBD: wnl Right Kidney: A cyst at the midpole measuring 1.0 x 1.2 x 2.0 cm. No hydronephrosis. IMPRESSION: 1. Nonspecific mild gallbladder wall thickening. This may reflect chronic cholecystitis or could refl ect third spacing. Clinically correlate. 2. No gallstones or ancillary findings of acute cholecystitis. 3. No biliary ductal dilatation.
== END | disposition home or self-care (01) ==
LOC: RADUSWWP 07:11
PROVIDERS: ATTEND Internal Medicine Gastroenterology
DX: K82.8 Other specified diseases of gallbladder (principal); R10.13 Epigastric pain
CPT/HCPCS: 76705

== ENCOUNTER 2023-09-18 06:09 | Emergency (ER) | payer MEDICARE ==
[2023-09-18 06:22] VITALS: RESP 18; TEMP 98.1
--- NOTE | 2023-09-18 07:48 | XR ---
EXAMINATION TYPE: XR foot complete 3 views LT DATE OF EXAM: 09/18/2023 Comparison: None Clinical History: 78-year-old male pain Findings: Small plantar heel spur. Bipartite tibial sesamoid. Some enthesopathy at the base of the fifth metata rsal bone with some punctate adjacent calcification and possible mild overlying soft tissue swelling. Type I accessory navicular. No acute fracture, subluxation, or dislocation. Impression: Spurring and punctate densities at the base of the fifth metatarsal probably correspond to chronic in sertional tendinopathy or sequela of old injury. If there is soft tissue swelling here or localizing pain, correlate to exclude etiologies such as gout. Small plantar heel spur.
[2023-09-18] MEDS ORDERED: CEPHALEXIN 500 MG CAP PO STA (07:53)
--- NOTE | 2023-09-18 07:54 | ED ---
Extremity Problem HPI - General Chief complaint: Extremity Problem,Nontraumatic Stated complaint: L Foot Poss Blood Clot Time Seen by Provider: 09/18/23 06:22 Source: patient, RN notes reviewed Mode of arrival: ambulatory Limitations: no limitations - History of Present Illness Initial comments: 78-year-old male presents emergency department with chief complaint of left foot pain. Patient states that they had no injury but states there is pain between the first and second digit with mild redness states he had a history of PE and was concerned that he may have a clot he has no calf pain no swelling in his leg states pain is only between digits he is a known diabetic. Denies any open lesions or sores. - Related Data Home Medications Medication Instructions Recorded Confirmed Apixaban [Eliquis] 5 mg PO BID 07/24/18 02/03/23 Sildenafil Citrate 60 mg PO DAILY PRN 07/24/18 02/03/23 Tamsulosin HCl [Flomax] 0.4 mg PO BID 07/24/18 02/03/23 Dapagliflozin Propanediol [Farxiga] 5 mg PO DAILY 02/03/23 02/03/23 Ergocalciferol (Vitamin D2) 1,250 mcg PO Q30D 02/03/23 02/03/23 [Drisdol (50,000 Iu)] Finasteride [Proscar] 5 mg PO DAILY 02/03/23 02/03/23 Propafenone [Rythmol] 150 mg PO BID 02/03/23 02/03/23 Rosuvastatin [Crestor] 20 mg PO HS 02/03/23 02/03/23 Previous Rx's Medication Instructions Recorded Cephalexin [Keflex] 500 mg PO Q6HR #40 cap 09/18/23 Allergies Allergy/AdvReac Type Severity Reaction Status Date / Time No Known Allergies Allergy Verified 09/18/23 06:17 Review of Systems ROS Statement: Those systems with pertinent positive or pertinent negative responses have been documented in the HPI. ROS Other: All systems not noted in ROS Statement are negative. Past Medical History Past Medical History: Atrial Fibrillation, Hyperlipidemia, Pulmonary Embolus (PE) Additional Past Medical History / Comment(s): HAS BEEN HAVING DIARRHEA FOR PAST 6 WEEKS. History of Any Multi-Drug Resistant Organisms: None Reported Past Surgical History: Appendectomy, Tonsillectomy Additional Past Surgical History / Comment(s): procedure to dissolve blood clots in the lung. COLONOSCOPY Past Anesthesia/Blood Transfusion Reactions: No Reported Reaction Past Psychological History: No Psychological Hx Reported Smoking Status: Never smoker Past Alcohol Use History: Rare Past Drug Use History: None Reported - Past Family History Mother Family Medical History: No Reported History General Exam Limitations: no limitations General appearance: alert, in no apparent distress Head exam: Present: atraumatic, normocephalic, normal inspection Respiratory exam: Present: normal lung sounds bilaterally. Absent: respiratory distress, wheezes, rales, rhonchi, stridor Cardiovascular Exam: Present: regular rate, normal rhythm, normal heart sounds. Absent: systolic murmur, diastolic murmur, rubs, gallop, clicks Extremities exam: Present: other (Left foot there is erythema noted between first and second digit there is mild tenderness) Neurological exam: Present: alert Psychiatric exam: Present: normal affect, normal mood Course Vital Signs 09/18/23 06:17 Temperature 98.1 F Pulse Rate 65 Respiratory 18 Rate Blood Pressure 140/69 O2 Sat by Pulse 95 Oximetry Medical Decision Making - Medical Decision Making Was pt. sent in by a medical professional or institution (, PA, DIRECTOR INDEPENDENT, urgent care, hospital, or longterm...) When possible be specific @ -No Did you speak to anyone other than the patient for history (EMS, parent, family, police, friend...)? What history was obtained from this source @ -No Did you review nursing and triage notes (agree or disagree)? Why? @ -I reviewed and agree with nursing and triage notes Were old charts reviewed (outside hosp., previous admission, EMS record, old EKG, old radiological studies, urgent care reports/EKG's, longterm records)? Report findings @ -No old charts were reviewed Differential Diagnosis (chest pain, altered mental status, abdominal pain women, abdominal pain men, vaginal bleeding, weakness, fever, dyspnea, syncope, headache, dizziness, GI bleed, back pain, seizure, CVA, palpatations, mental health, musculoskeletal)? @ -Foot fracture, cellulitis, gout, pseudogout foreign body foot EKG interpreted by me (3pts min.). @ -None X-rays interpreted by me (1pt min.). @ -X-ray left foot shows no acute foreign body or acute O'Mikel between the first and second digit there is chronic issue at fifth metatarsal CT interpreted by me (1pt min.). @ -None done U/S interpreted by me (1pt. min.). @ -None done What testing was considered but not performed or refused? (CT, X-rays, U/S, labs)? Why? @ -None What meds were considered but not given or refused? Why? @ -None Did you discuss the management of the patient with other professionals (professionals i.e. , PA, DIRECTOR INDEPENDENT, lab, RT, psych nurse, social worker health services, insurance coordinator, teacher, assistant chief nursing officer, case preparer and liner)? Give summary @ -No Was smoking cessation discussed for >3mins.? @ -No Was critical care preformed (if so, how long)? @ -No Were there social determinants of health that impacted care today? How? (Homelessness, low income, unemployed, alcoholism, drug addiction, transp ortation, low edu. Level, literacy, decrease access to med. care, usp, rehab)? @ -No Was there de-escalation of care discussed even if they declined (Discuss DNR or withdrawal of care, Hospice)? DNR status @ -No What co-morbidities impacted this encounter? (DM, HTN, Smoking, COPD, CAD, Cancer, CVA, ARF, Chemo, Hep., AIDS, mental health diagnosis, sleep apnea, morbid obesity)? @ -None Was patient admitted / discharged? Hospital course, mention meds given and route, prescriptions, significant lab abnormalities, going to OR and other pertinent info. @ -Discharge patient has cellulitis of his left patient started on oral antibiotics patient on close follow-up given patient is diabetic and erythematous cellulitic changes of the left foot Undiagnosed new problem with uncertain prognosis? @ -No Drug Therapy requiring intensive monitoring for toxicity (Heparin, Nitro, Insulin, Cardizem)? @ -No Were any procedures done? @ -No Diagnosis/symptom? @ -Left foot cellulitis Acute, or Chronic, or Acute on Chronic? @ -Acute Uncomplicated (without systemic symptoms) or Complicated (systemic symptoms)? @ -Uncomplicated Side effects of treatment? @ -No Exacerbation, Progression, or Severe Exacerbation? @ -No Poses a threat to life or bodily function? How? (Chest pain, [place], [place], pneumonia, PE, COPD, DKA, ARF, appy, cholecystitis, CVA, Diverticulitis, Homicidal, Suicidal, threat to staff... and all critical care pts) @ -No Disposition Clinical Impression: Cellulitis of left foot Disposition: HOME SELF-CARE Condition: Stable Instructions (If sedation given, give patient instructions): Cellulitis (ED) Additional Instructions: Please return to the Emergency Department if symptoms worsen or any other concerns. Prescriptions: Cephalexin [Keflex] 500 mg PO Q6HR #40 cap Is patient prescribed a controlled substance at d/c from ED?: No Referrals: Richard German MD [Primary Care Provider] - 1-2 days Time of Disposition: 07:54
[2023-09-18 08:06] VITALS: BP 131/81; PULSE 53
== END 2023-09-18 08:06 | disposition home or self-care (01) ==
LOC: EC 06:09
DX: L03.116 Cellulitis of left lower limb (principal)
CPT/HCPCS: 99283

== ENCOUNTER 2024-02-26 21:00 | Emergency (ER) | payer MEDICARE ==
--- NOTE | 2024-02-26 21:46 | ED ---
General Adult HPI - General Chief complaint: Abdominal Pain Stated complaint: Abdominal Pain, Blood in Vomit Time Seen by Provider: 02/26/24 21:25 Source: patient Mode of arrival: ambulatory Limitations: no limitations - History of Present Illness Initial comments: Dictation was produced using [employer] dictation software. please excuse any grammatical, word or spelling errors. Chief Complaint: 78-year-old male with epigastric pain History of Present Illness: Patient 78-year-old male presents emergency department epigastric pain. Patient states he had symptoms that start about 2 hours ago. States that he believes that this is his gallbladder acting up. Patient has a history of what he describes as gallbladder dyskinesia. There are no plans to have his gallbladder removed after being seen by general surgery. States that for the last 2 hours she has had some nausea and vomiting. He vomited several times. His last episodes of vomiting did have some streaks of blood in it. He does take anticoagulation medications for DVT/PE prophylaxis. The ROS documented in this emergency department record has been reviewed and confirmed by me. Those systems with pertinent positive or negative responses have been documented in the HPI. All other systems are other negative and/or noncontributory. - Related Data Home Medications Medication Instructions Recorded Confirmed Apixaban [Eliquis] 5 mg PO BID 07/24/18 02/03/23 Sildenafil Citrate 60 mg PO DAILY PRN 07/24/18 02/03/23 Tamsulosin HCl [Flomax] 0.4 mg PO BID 07/24/18 02/03/23 Dapagliflozin Propanediol [Farxiga] 5 mg PO DAILY 02/03/23 02/03/23 Ergocalciferol (Vitamin D2) 1,250 mcg PO Q30D 02/03/23 02/03/23 [Drisdol (50,000 Iu)] Finasteride [Proscar] 5 mg PO DAILY 02/03/23 02/03/23 Propafenone [Rythmol] 150 mg PO BID 02/03/23 02/03/23 Rosuvastatin [Crestor] 20 mg PO HS 02/03/23 02/03/23 Previous Rx's Medication Instructions Recorded Cephalexin [Keflex] 500 mg PO Q6HR #40 cap 09/18/23 Allergies Allergy/AdvReac Type Severity Reaction Status Date / Time No Known Allergies Allergy Verified 02/26/24 21:05 Review of Systems ROS Statement: Those systems with pertinent positive or pertinent negative responses have been documented in the HPI. ROS Other: All systems not noted in ROS Statement are negative. Past Medical History Past Medical History: Atrial Fibrillation, Hyperlipidemia, Pulmonary Embolus (PE) Additional Past Medical History / Comment(s): HAS BEEN HAVING DIARRHEA FOR PAST 6 WEEKS. History of Any Multi-Drug Resistant Organisms: None Reported Past Surgical History: Appendectomy, Tonsillectomy Additional Past Surgical History / Comment(s): procedure to dissolve blood clots in the lung. COLONOSCOPY Past Anesthesia/Blood Transfusion Reactions: No Reported Reaction Past Psychological History: No Psychological Hx Reported Smoking Status: Never smoker Past Alcohol Use History: Rare Past Drug Use History: None Reported - Past Family History Mother Family Medical History: No Reported History General Exam - General Exam Comments Initial Comments: PHYSICAL EXAM: General Impression: Alert and oriented x3, not in acute distress HEENT: Normocephalic atraumatic, extra-ocular movements intact, pupils equal and reactive to light bilaterally, mucous membranes moist. Cardiovascular: Heart regular rate and rhythm Chest: Able to complete full sentences, no retractions, no tachypnea Abdomen: abdomen soft, mild palpatory epigastric tenderness, negative Rubalcava sign, non-distended, no organomegaly Musculoskeletal: Pulses present and equal in all extremities, no peripheral edema Motor: no focal deficits noted Neurological: CN II-XII grossly intact, no focal motor or sensory deficits noted Skin: Intact with no visualized rashes Psych: Normal affect and mood Limitations: no limitations Course Vital Signs 02/26/24 21:01 Temperature 98.3 F Pulse Rate 53 L Respiratory 18 Rate Blood Pressure 193/74 O2 Sat by Pulse 97 Oximetry EKG Findings - EKG Comments: EKG Findings:: My EKG interpretation: Ventricular rate 46, sinus bradycardia,. 195, QRS 101, QTc 425. No CO prolongation, no QTC prolongation, no ST or T-wave changes noted. No heart block. Overall this EKG shows sinus bradycardia Medical Decision Making - Medical Decision Making Was pt. sent in by a medical professional or institution (, PA, ENGINE PILOT, urgent care, hospital, or long term...) When possible be specific @ -No Did you speak to anyone other than the patient for history (EMS, parent, family, police, friend...)? What history was obtained from this source @ -No Did you review nursing and triage notes (agree or disagree)? Why? @ -I reviewed and agree with nursing and triage notes Were old charts reviewed (outside hosp., previous admission, EMS record, old EKG, old radiological studies, urgent care reports/EKG's, long term records)? Report findings @ -Previous gallbladder from April of this year was reviewed showing patient has nonspecific mild gallbladder wall thickening Differential Diagnosis (chest pain, altered mental status, abdominal pain women, abdominal pain men, vaginal bleeding, musculoskeletal, weakness, fever, dyspnea, syncope, headache, dizziness, GI bleed, back pain, seizure, CVA, palpatations, mental health)? @ -Differential Abdominal Pain Men: Appendicitis, cholecystitis, diverticulosis, ischemic bowel, pancreatitis, hepatitis, UTI, gastroenteritis, AAA, incarcerated hernia, bowel obstruction, constipation, inflammatory bowel, hepatitis, peptic ulcer disease, splenic infarction, perforated viscus, testicular torsion, this is not meant to be an all-inclusive list EKG interpreted by me (3pts min.). @ -See above X-rays interpreted by me (1pt min.). @ -Chest x-ray abdominal x-ray obtained showing vague abnormalities. CT interpreted by me (1pt min.). @ -CT chest abdomen pelvis shows gallbladder wall thickening suspicious for a cute cholecystitis. Also thin-walled cyst throughout the lungs. U/S interpreted by me (1pt. min.). @ -None done What testing was considered but not performed or refused? (CT, X-rays, U/S, labs)? Why? @ -None What meds were considered but not given or refused? Why? @ -None Was smoking cessation discussed for >3mins.? @ -No Were there social determinants of health that impacted care today? How? (Homelessness, low income, unemployed, alcoholism, drug addiction, transportation, low edu. Level, literacy, decrease access to med. care, usp, rehab)? @ -No Was there de-escalation of care discussed even if they declined (Discuss DNR or withdrawal of care, Hospice)? DNR status @ -No What co-morbidities impacted this encounter? (DM, HTN, Smoking, COPD, CAD, Cancer, CVA, ARF, Chemo, Hep., AIDS, mental health diagnosis, sleep apnea, morbid obesity)? @ -Chronic gallbladder issues Was patient admitted / discharged? Hospital course, mention meds given and route, prescriptions, significant lab abnormalities, going to OR and other pertinent info. @ -78-year-old male presents to the emergency department for chief complaint of abdominal pain, nausea vomiting and blood streaks in his vomit after having had multiple episodes already. Vital signs upon arrival are within acceptable limits. Patient well-appearing. Physical examination is benign. Negative Rubalcava sign. Patient's abdomen is nonsurgical. Patient has history of gallbladder issues and sees general surgeon outpatient regarding this. Laboratory evaluation obtained. Labs unremarkable. Abdominal labs are negative. X-ray shows vague abdominal findings concerning for colonic obstruction. Radiology recommended CT imaging. CT imaging obtained showing gallbladder wall thickening suspicious for acute cholecystitis. Patient reevaluated bedside 2:25 AM he has a benign abdomen and states that his pain is completely resolved. Patient offered hospital admission for serial abdominal examination and general surgery consultation given that there is gallbladder wall thickening and radiographic concern for acute cholecystitis. Patient refused like to be discharged. He states that he will see his general surgeon tomorrow. Patient given strict return precaution. He is told that he should seek immediate medical attention should he develop any fever, worsening pain nausea vomiting etc. Did you discuss the management of the patient with other professionals (professionals i.e. , PA, ENGINE PILOT, lab, RT, psych nurse, school social worker, 3d animator, teacher, correctional officer chief, window caser)? Give summary @ -No Was critical care preformed (if so, how long)? @ -No Undiagnosed new problem with uncertain prognosis? @ -No Drug Therapy requiring intensive monitoring for toxicity (Heparin, Nitro, Insulin, Cardizem)? @ -No Were any procedures done? @ -No Diagnosis/symptom? Acute, or Chronic, or Acute on Chronic? Uncomplicated (wit hout systemic symptoms) or Complicated (systemic symptoms)? @ -Abdominal pain, no obvious source Side effects of treatment? @ -No Exacerbation, Progression, or Severe Exacerbation? @ -No Poses a threat to life or bodily function? How? (Chest pain, [place], [place], pneumonia, PE, COPD, DKA, ARF, appy, cholecystitis, CVA, Diverticulitis, Homicidal, Suicidal, threat to staff... and all critical care pts) @ -yes - Lab Data Result diagrams: 02/26/24 22:15 02/26/24 22:15 Lab Results 02/26/24 02/26/24 02/26/24 Range/Units 22:15 22:15 22:15 WBC 13.2 H (3.8-10.6) k/uL RBC 4.57 (4.30-5.90) m/uL Hgb 14.6 (13.0-17.5) gm/dL Hct 45.2 (39.0-53.0) % MCV 98.8 (80.0-100.0) fL MCH 32.0 (25.0-35.0) pg MCHC 32.4 (31.0-37.0) g/dL RDW 12.5 (11.5-15.5) % Plt Count 161 (150-450) k/uL MPV 7.6 Neutrophils % 86 % Lymphocytes % 9 % Monocytes % 3 % Eosinophils % 1 % Basophils % 0 % Neutrophils # 11.4 H (1.3-7.7) k/uL Lymphocytes # 1.2 (1.0-4.8) k/uL Monocytes # 0.4 (0-1.0) k/uL Eosinophils # 0.1 (0-0.7) k/uL Basophils # 0.0 (0-0.2) k/uL PT 10.4 (10.0-12.5) sec INR 0.9 (<1.2) APTT 22.1 (22.0-30.0) sec Sodium 137 (137-145) mmol/L Potassium 4.3 (3.5-5.1) mmol/L Chloride 105 (98-107) mmol/L Carbon Dioxide 25 (22-30) mmol/L Anion Gap 7 mmol/L BUN 25 H (9-20) mg/dL Creatinine 1.24 (0.66-1.25) mg/dL Est GFR (CKD-EPI)AfAm 65 (>60 ml/min/1.73 sqM) Est GFR (CKD-EPI)NonAf 56 (>60 ml/min/1.73 sqM) Glucose 149 H (74-99) mg/dL Calcium 9.2 (8.4-10.2) mg/dL Total Bilirubin 0.5 (0.2-1.3) mg/dL AST 21 (17-59) U/L ALT 25 (4-49) U/L Alkaline Phosphatase 77 (38-126) U/L Troponin I (0.000-0.034) ng/mL Total Protein 7.2 (6.3-8.2) g/dL Albumin 4.3 (3.5-5.0) g/dL Lipase 112 (23-300) U/L Blood Type Blood Type Confirm Blood Type Recheck Bld Type Recheck Status Antibody Screen Spec Expiration Date 02/26/24 02/26/24 02/26/24 Range/Units 22:15 22:15 22:20 WBC (3.8-10.6) k/uL RBC (4.30-5.90) m/uL Hgb (13.0-17.5) gm/dL Hct (39.0-53.0) % MCV (80.0-100.0) fL MCH (25.0-35.0) pg MCHC (31.0-37.0) g/dL RDW (11.5-15.5) % Plt Count (150-450) k/uL MPV Neutrophils % % Lymphocytes % % Monocytes % % Eosinophils % % Basophils % % Neutrophils # (1.3-7.7) k/uL Lymphocytes # (1.0-4.8) k/uL Monocytes # (0-1.0) k/uL Eosinophils # (0-0.7) k/uL Basophils # (0-0.2) k/uL PT (10.0-12.5) sec INR (<1.2) APTT (22.0-30.0) sec Sodium (137-145) mmol/L Potassium (3.5-5.1) mmol/L Chloride (98-107) mmol/L Carbon Dioxide (22-30) mmol/L Anion Gap mmol/L BUN (9-20) mg/dL Creatinine (0.66-1.25) mg/dL Est GFR (CKD-EPI)AfAm (>60 ml/min/1.73 sqM) Est GFR (CKD-EPI)NonAf (>60 ml/min/1.73 sqM) Glucose (74-99) mg/dL Calcium (8.4-10.2) mg/dL Total Bilirubin (0.2-1.3) mg/dL AST (17-59) U/L ALT (4-49) U/L Alkaline Phosphatase (38-126) U/L Troponin I <0.012 (0.000-0.034) ng/mL Total Protein (6.3-8.2) g/dL Albumin (3.5-5.0) g/dL Lipase (23-300) U/L Blood Type A Negative Blood Type Confirm A Negative Blood Type Recheck No Previous Record Bld Type Recheck Status CABO Indicated Antibody Screen NEGATIVE Spec Expiration Date 02/29/20242314 Disposition Clinical Impression: Abdominal pain Disposition: HOME SELF-CARE Condition: Fair Instructions (If sedation given, give patient instructions): Abdominal Pain (ED) Is patient prescribed a controlled substance at d/c from ED?: No Referrals: Richard German MD [Primary Care Provider] - 1-2 days Cody Mcneal MD [Medical Doctor] - 1-2 days Time of Disposition: 02:26
[2024-02-26] MEDS: ONDANSETRON 4 MG/2 ML VIAL IVP STA (22:14)
[2024-02-26] MEDS: PANTOPRAZOLE 40 MG/10 ML VIAL IVP STA (22:14)
[2024-02-26 22:41] LABS: Basophils % (A) 0 %; Eosinophils # (A) 0.1 k/uL (0-0.7); Eosinophils % (A) 1 %; HCT 45.2 % (39.0-53.0); HGB 14.6 gm/dL (13.0-17.5); Lymphocytes # (A) 1.2 k/uL (1.0-4.8); Lymphocytes % (A) 9 %; MCHC 32.4 g/dL (31.0-37.0); MCV 98.8 fL (80.0-100.0); Mean Platelet Volume 7.6; Monocytes # (A) 0.4 k/uL (0-1.0); Monocytes % (A) 3 %; Neutrophils # (A) 11.4 k/uL (1.3-7.7); Neutrophils % (A) 86 %; Platelet Count 161 k/uL (150-450); RBC 4.57 m/uL (4.30-5.90); RDW 12.5 % (11.5-15.5); WBC 13.2 k/uL (3.8-10.6)
[2024-02-26 22:57] LABS: INR 0.9 (<1.2); Partial Thromboplastin Time 22.1 sec (22.0-30.0); Prothrombin Time 10.4 sec (10.0-12.5)
[2024-02-26 23:14] LABS: ALT 25 U/L (4-49); AST 21 U/L (17-59); African American GFR (CKD) 65 (>60 ml/min/1.73 sqM); Albumin 4.3 g/dL (3.5-5.0); Alkaline Phosphatase 77 U/L (38-126); Anion Gap 7 mmol/L; Blood Urea Nitrogen 25 mg/dL (9-20); Calcium 9.2 mg/dL (8.4-10.2); Carbon Dioxide 25 mmol/L (22-30); Chloride 105 mmol/L (98-107); Glucose 149 mg/dL (74-99); Lipase 112 U/L (23-300); Non-African American GFR(CKD) 56 (>60 ml/min/1.73 sqM); Potassium 4.3 mmol/L (3.5-5.1); Sodium 137 mmol/L (137-145); Total Bilirubin 0.5 mg/dL (0.2-1.3); Total Protein 7.2 g/dL (6.3-8.2)
--- NOTE | 2024-02-27 00:40 | XR ---
EXAMINATION TYPE: XR chest 2V DATE OF EXAM: 02/27/2024 CLINICAL HISTORY: Epigastric pain. TECHNIQUE: Frontal and lateral views of the chest are obtained. COMPARISON: Chest x-ray February 03, 2023 FINDINGS: There is right basilar opacity on frontal view was well seen on lateral view. Left lung i s clear. The cardiac silhouette size remains within normal limits. The osseous structures are intac t. IMPRESSION: New right basilar acute infiltrate and/or atelectasis. [facility], , 02/27/2024 12:38 AM
--- NOTE | 2024-02-27 00:41 | XR ---
EXAMINATION TYPE: XR abdomen 1V DATE OF EXAM: 02/27/2024 12:25 AM CLINICAL HISTORY: Epigastric pain TECHNIQUE: Two Upright KUB images of the abdomen are obtained. COMPARISON: None. FINDINGS: Scattered gas is seen in non-distended small bowel loops. Gas and fecal material is seen in non-distended colon. No free air. No suspicious calcifications. Osseous structures are intact. Possi ble focal wall thickening or mass in the right colon. IMPRESSION: Overall nonobstructive bowel gas pattern. Possible focal right-sided colitis or apple core type mass. Correlate clinically to determine need for follow-up with possible CT or colonoscopy. [facility], , 02/27/2024 12:39 AM
--- NOTE | 2024-02-27 02:03 | CT ---
EXAMINATION TYPE: CT ChestAbdPelvis w con DATE OF EXAM: 02/27/2024 COMPARISON: X-rays earlier today. HISTORY: Patient reports abd pain x2 hours ago. +nausea and vomiting. Patient reports small amount of blood in vomit. CT DLP: 1161.1 mGycm. Automated Exposure Control for Dose Reduction was Utilized. CONTRAST: CT scan of the thorax, abdomen and pelvis is performed with IV Contrast, patient injected with 80ml m L of Isovue 300. FINDINGS: LUNGS: There are several small thin-walled cysts scattered throughout both lungs. Mild bibasilar line ar scarring and atelectasis. No suspicious focal consolidation. No pleural effusion or pneumothorax s een bilaterally. MEDIASTINUM: There are no greater than 1 cm hilar or mediastinal lymph nodes. No cardiomegaly or pe ricardial effusion is seen. Coronary artery calcification and/or stents are present. LIVER/GB: Edematous wall thickening to the gallbladder which is distended margins. There is 10 mm gal lstone in the region of the cystic duct coronal image 36. No biliary dilatation. PANCREAS: No significant abnormality is seen. SPLEEN: No significant abnormality is seen. ADRENALS: No significant abnormality is seen. KIDNEYS: A few simple appearing thin-walled cyst centrally in both kidneys. Symmetric uptake and excr etion of both kidneys is seen without hydronephrosis. BOWEL: Colonic diverticulosis most prominent involving the sigmoid colon. No CT evidence for acute di verticulitis. No abnormal small or large bowel dilatation. No suspicious mass or wall thickening in t he right colon. GENITAL ORGANS: Enlarged prostate consistent with BPH. LYMPH NODES: No greater than 1cm abdominal or pelvic lymph nodes are appreciated. OSSEOUS STRUCTURES: Some bridging osteophytes in the mid to lower thoracic spine are seen. Moderate n arrowing of both hip joints is present. OTHER: Moderate calcified plaque of the infrarenal abdominal aorta extends into iliac branch vessels. IMPRESSION: 1. Scattered bilateral simple thin-walled cysts throughout the lungs. Mild bibasilar linear scarring and atelectasis. No suspicious focal consolidation. 2. CT findings suggest acute cholecystitis secondary to obstructing 10 mm stone in the cystic duct. C orrelate clinically. Advise surgical evaluation. 3. Distal colonic diverticulosis. No CT evidence for acute diverticulitis. No bowel obstruction. No s uspicious mass or wall thickening in the right colon. [facility], , 02/27/2024 2:01 AM
[2024-02-27 02:36] VITALS: BP 131/86; PULSE 63; RESP 17; TEMP 98.7
== END 2024-02-27 02:39 | disposition home or self-care (01) ==
LOC: EC 21:00
DX: R10.13 Epigastric pain (principal); R00.1 Bradycardia, unspecified; K81.1 Chronic cholecystitis
CPT/HCPCS: 36415; 93005; 86900; 86901; 80053; 83690; 84484; 85025; 85610; 85730; 86850; 99284; 96374; 96375; J2405; J2470; 71046; 71260; 74018; 74177

== ENCOUNTER 2024-03-08 16:31 | Emergency (ER) | payer MEDICARE ==
[2024-03-08 16:36] VITALS: RESP 18; TEMP 97.5
[2024-03-08] MEDS: SODIUM CHLORIDE 0.9% 1,000 ML IV STA ×2 (17:22→18:36)
[2024-03-08] MEDS: ONDANSETRON 4 MG/2 ML VIAL IVP STA (17:23)
[2024-03-08 17:26] LABS: Basophils # (A) 0.1 k/uL (0-0.2); Basophils % (A) 1 %; Eosinophils # (A) 0.1 k/uL (0-0.7); Eosinophils % (A) 1 %; HCT 50.3 % (39.0-53.0); HGB 16.6 gm/dL (13.0-17.5); Lymphocytes % (A) 10 %; MCH 32.7 pg (25.0-35.0); MCHC 33.1 g/dL (31.0-37.0); MCV 99.1 fL (80.0-100.0); Mean Platelet Volume 8.1; Monocytes # (A) 0.4 k/uL (0-1.0); Monocytes % (A) 4 %; Neutrophils % (A) 83 %; Platelet Count 209 k/uL (150-450); RBC 5.08 m/uL (4.30-5.90); RDW 12.4 % (11.5-15.5); WBC 9.7 k/uL (3.8-10.6)
[2024-03-08] MEDS: PANTOPRAZOLE 40 MG/10 ML VIAL IVP STA (17:26)
[2024-03-08 17:38] LABS: ALT 27 U/L (4-49); AST 21 U/L (17-59); African American GFR (CKD) 67 (>60 ml/min/1.73 sqM); Alkaline Phosphatase 94 U/L (38-126); Amylase 38 U/L (30-110); Anion Gap 14 mmol/L; Blood Urea Nitrogen 25 mg/dL (9-20); Calcium 10.2 mg/dL (8.4-10.2); Carbon Dioxide 19 mmol/L (22-30); Chloride 107 mmol/L (98-107); Glucose 121 mg/dL (74-99); Lipase 66 U/L (23-300); Magnesium 2.1 mg/dL (1.6-2.3); Non-African American GFR(CKD) 58 (>60 ml/min/1.73 sqM); Potassium 4.7 mmol/L (3.5-5.1); Sodium 140 mmol/L (137-145); Total Protein 8.6 g/dL (6.3-8.2)
--- NOTE | 2024-03-08 17:40 | ED ---
General Adult HPI - General Chief complaint: Nausea/Vomiting/Diarrhea Stated complaint: irregular heart beat Time Seen by Provider: 03/08/24 16:51 Source: patient, RN notes reviewed, old records reviewed Mode of arrival: ambulatory Limitations: no limitations - History of Present Illness Initial comments: Patient is a 78-year-old male who presents emergency department complaining of increased heart rate. Patient has a history of atrial fibrillation, pulmonary embolism, hyperlipidemia, as well as a bad gallbladder for which he is having a cholecystectomy scheduled on Saturday. States he has been having loose stool that is nonbloody. Has had approximately 6-8 episodes today. Normally goes to bathroom maybe 2 or 3 times a day. Endorses some mild nausea but no emesis. Denies any significant abdominal pain, chest pain, shortness of breath. Patient is on blood thinners. Denies any blood in his stool. Has had a decreased appetite today. Denies any fevers, chills, cough. Has no urinary complaints. Presents for further evaluation at this time. States his heart rate is usually in the 60s or 70s and today it was in the 90s which made him concerned.He denies any chest pain or shortness of breath. He has no cardiac symptoms. Just was aware that his heart rate was slightly faster than normal. Does have a history of A-fib and has been compliant with his medications. - Related Data Home Medications Medication Instructions Recorded Confirmed Apixaban [Eliquis] 5 mg PO BID 07/24/18 03/08/24 Sildenafil Citrate 60 mg PO DAILY PRN 07/24/18 03/08/24 Tamsulosin HCl [Flomax] 0.8 mg PO HS 07/24/18 03/08/24 Dapagliflozin Propanediol [Farxiga] 5 mg PO DAILY 02/03/23 03/08/24 Ergocalciferol (Vitamin D2) 1,250 mcg PO Q30D 02/03/23 03/08/24 [Drisdol (50,000 Iu)] Finasteride [Proscar] 5 mg PO HS 02/03/23 03/08/24 Propafenone [Rythmol] 150 mg PO BID 02/03/23 03/08/24 Rosuvastatin [Crestor] 20 mg PO HS 02/03/23 03/08/24 Omeprazole 20 mg PO DAILY 03/08/24 03/08/24 Allergies Allergy/AdvReac Type Severity Reaction Status Date / Time No Known Allergies Allergy Verified 03/08/24 17:13 Review of Systems ROS Statement: Those systems with pertinent positive or pertinent negative responses have been documented in the HPI. Review of Systems: CONST: Denies fever EYES: Denies blurry vision ENT: Denies nasal congestion C/V: Denies Chest pain RESP: Denies shortness of breath GI: Endorses diarrhea : Denies dysuria SKIN: Denies rash. MSK: Denies joint pain. NEURO: Denies headache ROS Other: All systems not noted in ROS Statement are negative. Past Medical History Past Medical History: Atrial Fibrillation, Hyperlipidemia, Pulmonary Embolus (PE) Additional Past Medical History / Comment(s): HAS BEEN HAVING DIARRHEA FOR PAST 6 WEEKS. History of Any Multi-Drug Resistant Organisms: None Reported Past Surgical History: Appendectomy, Tonsillectomy Additional Past Surgical History / Comment(s): procedure to dissolve blood clots in the lung. COLONOSCOPY Past Anesthesia/Blood Transfusion Reactions: No Reported Reaction Past Psychological History: No Psychological Hx Reported Smoking Status: Never smoker Past Alcohol Use History: Rare Past Drug Use History: None Reported - Past Family History Mother Family Medical History: No Reported History General Exam - General Exam Comments Initial Comments: General: Appears in no acute distress. HEAD: Normal with no signs of head trauma. EYES: EOMI ENT: Hearing grossly intact, normal oropharynx. RESPIRATORY: Clear breath sounds bilaterally. No wheezes, rales, or rhonchi. C/V: Regular rate and rhythm. S1 and S2 auscultated, no edema, peripheral pulses 2+ and intact throughout ABD: Abd is soft, nontender, nondistended. No guarding or rebound tenderness. No peritoneal signs. EXT: No obvious deformity. SKIN: No rashes or lesions observed on exposed skin. NEURO: Alert and oriented x 4. Limitations: no limitations Course Vital Signs 03/08/24 03/08/24 03/08/24 16:33 17:21 20:00 Temperature 97.5 F L Pulse Rate 97 83 84 Respiratory 18 18 18 Rate Blood Pressure 144/95 143/92 136/90 O2 Sat by Pulse 96 97 97 Oximetry Medical Decision Making - Medical Decision Making Was pt. sent in by a medical professional or institution (, PA, INSURANCE CLAIMS SPECIALIST, urgent care, hospital, or longterm...) When possible be specific @ -No Did you speak to anyone other than the patient for history (EMS, parent, family, police, friend...)? What history was obtained from this source @ -No Did you review nursing and triage notes (agree or disagree)? Why? @ -I reviewed and agree with nursing and triage notes Were old charts reviewed (outside hosp., previous admission, EMS record, old EKG, old radiological studies, urgent care reports/EKG's, longterm records)? Report findings @ -Reviewed prior EKGs from January 2023 as well as July 2018 with no obvious dynamic changes on today's EKG. Differential Diagnosis (chest pain, altered mental status, abdominal pain women, abdominal pain men, vaginal bleeding, weakness, fever, dyspnea, syncope, headache, dizziness, GI bleed, back pain, seizure, CVA, palpatations, mental health, musculoskeletal)? @ -Diarrhea, gastroenteritis, dehydration, electrolyte abnormalities. This li st is not all inclusive. EKG interpreted by me (3pts min.). @ -As above X-rays interpreted by me (1pt min.). @ -None done CT interpreted by me (1pt min.). @ -CT abdomen pelvis was obtained and revealed enteritis, enlarged prostate, as well as redemonstration of the gallbladder findings from prior CT including a gallstone as well as thickened gallbladder wall. This is chronic seen on prior workup and is due to have his gallbladder removed on Saturday. U/S interpreted by me (1pt. min.). @ -Gallbladder ultrasound reveals the thickened gallbladder wall which is similar with prior imaging from earlier this month. Patient has no current pain. Has outpatient cholecystectomy later this week. What testing was considered but not performed or refused? (CT, X-rays, U/S, labs)? Why? @ -None What meds were considered but not given or refused? Why? @ -None Did you discuss the management of the patient with other professionals (professionals i.e. , PA, INSURANCE CLAIMS SPECIALIST, lab, RT, psych nurse, licensed clinical social worker, java j2ee technical lead, teacher, credit review officer, bottle caser)? Give summary @ -No Was smoking cessation discussed for >3mins.? @ -No Was critical care preformed (if so, how long)? @ -No Were there social determinants of health that impacted care today? How? (Homelessness, low income, unemployed, alcoholism, drug addiction, transportation, low edu. Level, literacy, decrease access to med. care, [facility], rehab)? @ -No Was there de-escalation of care discussed even if they declined (Discuss DNR or withdrawal of care, Hospice)? DNR status @ -No What co-morbidities impacted this encounter? (DM, HTN, Smoking, COPD, CAD, Cancer, CVA, ARF, Chemo, Hep., AIDS, mental health diagnosis, sleep apnea, morbid obesity)? @ -None Was patient admitted / discharged? Hospital course, mention meds given and route, prescriptions, significant lab abnormalities, going to OR and other pertinent info. @ -Based on patient's presentation and physical exam, patient presents emergency department complaining of a somewhat faster heart rate than normal in the 90s when he is usually in the 60s to 70s as well as diarrhea throughout the day. No significant abdominal pain. Discussed with the patient as he has a known history of a bad gallbladder, we will obtain a gallbladder ultrasound as well as screening abdominal labs and a screening EKG. Patient was in agreement this plan. Vitals are within acceptable limits. Patient was symptomatically treated with IV Zofran, Protonix, fluids. He was in agreement this plan. EKG shows no signs of acute ischemia. Gallbladder ultrasound reveals the thickened gallbladder wall which is similar with prior imaging from earlier this month. Patient has no current pain. Has outpatient cholecystectomy later this week. Patient's laboratory studies revealed no obvious acute findings. Normal hepatobiliary labs. Normal lactic acid. 1+ ketones in urine which does fit with the dehydration and diarrhea. Electrolytes otherwise within acceptable limits. I discussed results with the patient. Due to the negative workup and him having continued diarrhea, I do not believe that patient requires admission at this time based on current workup however we did discuss and agreed to obtain CT imaging the abdomen pelvis. He was in agreement this plan. We discussed that the gallbladder findings are likely chronic as he is due to have his cholecystectomy on Saturday with Dr. Mcneal and his symptoms are not typical of cholecystitis as he has no pain, nausea, vomiting. He is just having some diarrhea. CT abdomen pelvis was obtained and revealed enteritis, enlarged prostate, as we ll as redemonstration of the gallbladder findings from prior CT including a gallstone as well as thickened gallbladder wall. This is chronic seen on prior workup and is due to have his gallbladder removed on Saturday. We discussed results of CT imaging which appears similar to prior CT imaging from a few weeks ago which is why he is having his gallbladder removed on Saturday. We discussed that it is likely chronic findings and he was in agreement as he otherwise feels well and would like to go home. Joint decision making was performed to come to this conclusion. I believe this is reasonable. He will be given additional starter pack of Imodium and instructions follow-up with his PCP in a few days. Also instructions to contact Dr. Mcneal regarding his surgery and ensure he completes his surgery. Strict return precautions discussed. He was in agreement this plan. Patient is resting comfortably with no acute complaints at time of discharge.We discussed that he has pulse elevation, is not extremely significant and could be related to the mild dehydration as well as the enteritis. Recommended he continue to monitor at home concerning his history of atrial fibrillation IV is currently normal sinus rhythm with a pulse in the 80s. He was in agreement this plan. I will provide the patient with a prescription for Imodium starter pack. I instructed the patient to follow up with their PCP in the next 1-3 days.. I explained that the patient should return to the emergency department if they experience any worsening symptoms. Strict return precautions were discussed with the patient. The patient expressed understanding of these instructions. I answered all questions that the patient had. The patient was discharged home in good condition with their prescriptions and follow up information. Undiagnosed new problem with uncertain prognosis? @ -No Drug Therapy requiring intensive monitoring for toxicity (Heparin, Nitro, Insulin, Cardizem)? @ -No Were any procedures done? @ -No Diagnosis/symptom? @ -Diarrhea, enteritis, dehydration Acute, or Chronic, or Acute on Chronic? @ -Acute Uncomplicated (without systemic symptoms) or Complicated (systemic symptoms)? @ -Uncomplicated Side effects of treatment? @ -None Exacerbation, Progression, or Severe Exacerbation] @ -No Poses a threat to life or bodily function? @ -Unlikely at this time - Lab Data Result diagrams: 03/08/24 17:18 03/08/24 17:18 Lab Results 03/08/24 03/08/24 03/08/24 Range/Units 17:18 17:18 17:18 WBC 9.7 (3.8-10.6) k/uL RBC 5.08 (4.30-5.90) m/uL Hgb 16.6 (13.0-17.5) gm/dL Hct 50.3 (39.0-53.0) % MCV 99.1 (80.0-100.0) fL MCH 32.7 (25.0-35.0) pg MCHC 33.1 (31.0-37.0) g/dL RDW 12.4 (11.5-15.5) % Plt Count 209 (150-450) k/uL MPV 8.1 Neutrophils % 83 % Lymphocytes % 10 % Monocytes % 4 % Eosinophils % 1 % Basophils % 1 % Neutrophils # 8.0 H (1.3-7.7) k/uL Lymphocytes # 1.0 (1.0-4.8) k/uL Monocytes # 0.4 (0-1.0) k/uL Eosinophils # 0.1 (0-0.7) k/uL Basophils # 0.1 (0-0.2) k/uL PT 10.5 (10.0-12.5) sec INR 0.9 (<1.2) APTT 22.7 (22.0-30.0) sec Sodium 140 (137-145) mmol/L Potassium 4.7 (3.5-5.1) mmol/L Chloride 107 (98-107) mmol/L Carbon Dioxide 19 L (22-30) mmol/L Anion Gap 14 mmol/L BUN 25 H (9-20) mg/dL Creatinine 1.20 (0.66-1.25) mg/dL Est GFR (CKD-EPI)AfAm 67 (>60 ml/min/1.73 sqM) Est GFR (CKD-EPI)NonAf 58 (>60 ml/min/1.73 sqM) Glucose 121 H (74-99) mg/dL Plasma Lactic Acid [place] (0.7-2.0) mmol/L Calcium 10.2 (8.4-10.2) mg/dL Magnesium 2.1 (1.6-2.3) mg/dL Total Bilirubin 1.0 (0.2-1.3) mg/dL AST 21 (17-59) U/L ALT 27 (4-49) U/L Alkaline Phosphatase 94 (38-126) U/L Total Protein 8.6 H (6.3-8.2) g/dL Albumin 5.0 (3.5-5.0) g/dL Amylase 38 (30-110) U/L Lipase 66 (23-300) U/L Urine Color Urine Appearance (Clear) Urine pH (5.0-8.0) Ur Specific [place] (1.001-1.035) Urine Protein (Negative) Urine Glucose (UA) (Negative) Urine Ketones (Negative) Urine Blood (Negative) Urine Nitrite (Negative) Urine Bilirubin (Negative) Urine Urobilinogen (<2.0) mg/dL Ur Leukocyte Esterase (Negative) Influenza Type A (PCR) (Not Detectd) Influenza Type B (PCR) (Not Detectd) RSV (PCR) (Not Detectd) SARS-CoV-2 (PCR) (Not Detectd) 03/08/24 03/08/24 03/08/24 Range/Units 17:18 17:18 18:18 WBC (3.8-10.6) k/uL RBC (4.30-5.90) m/uL Hgb (13.0-17.5) gm/dL Hct (39.0-53.0) % MCV (80.0-100.0) fL MCH (25.0-35.0) pg MCHC (31.0-37.0) g/dL RDW (11.5-15.5) % Plt Count (150-450) k/uL MPV Neutrophils % % Lymphocytes % % Monocytes % % Eosinophils % % Basophils % % Neutrophils # (1.3-7.7) k/uL Lymphocytes # (1.0-4.8) k/uL Monocytes # (0-1.0) k/uL Eosinophils # (0-0.7) k/uL Basophils # (0-0.2) k/uL PT (10.0-12.5) sec INR (<1.2) APTT (22.0-30.0) sec Sodium (137-145) mmol/L Potassium (3.5-5.1) mmol/L Chloride (98-107) mmol/L Carbon Dioxide (22-30) mmol/L Anion Gap mmol/L BUN (9-20) mg/dL Creatinine (0.66-1.25) mg/dL Est GFR (CKD-EPI)AfAm (>60 ml/min/1.73 sqM) Est GFR (CKD-EPI)NonAf (>60 ml/min/1.73 sqM) Glucose (74-99) mg/dL Plasma Lactic Acid [place] 0.9 (0.7-2.0) mmol/L Calcium (8.4-10.2) mg/dL Magnesium (1.6-2.3) mg/dL Total Bilirubin (0.2-1.3) mg/dL AST (17-59) U/L ALT (4-49) U/L Alkaline Phosphatase (38-126) U/L Total Protein (6.3-8.2) g/dL Albumin (3.5-5.0) g/dL Amylase (30-110) U/L Lipase (23-300) U/L Urine Color Colorless Urine Appearance Clear (Clear) Urine pH 5.0 (5.0-8.0) Ur Specific [place] 1.026 (1.001-1.035) Urine Protein Trace H (Negative) Urine Glucose (UA) 4+ H (Negative) Urine Ketones 1+ H (Negative) Urine Blood Negative (Negative) Urine Nitrite Negative (Negative) Urine Bilirubin Negative (Negative) Urine Urobilinogen <2.0 (<2.0) mg/dL Ur Leukocyte Esterase Negative (Negative) Influenza Type A (PCR) Not Detected (Not Detectd) Influenza Type B (PCR) Not Detected (Not Detectd) RSV (PCR) Not Detected (Not Detectd) SARS-CoV-2 (PCR) Not Detected (Not Detectd) - EKG Data -: EKG Interpreted by Me EKG Comments: 12-lead Electrocardiogram Interpretation Note EKG was reviewed and interpreted by myself. 12-lead ECG performed at 1639 is interpreted by me as revealing normal sinus rhythm at a rate of 93 beats per minute. [place] is normal. PA interval is 191 ms, QRS duration is 105 ms, QTc is 402 ms.. Nonspecific T wave abnormalities present. R wave progression across the precordium was satisfactory. By my interpretation this EKG is non-diagno stic for acute ischemia. Disposition Clinical Impression: Diarrhea, Dehydration, Enteritis Disposition: HOME SELF-CARE Condition: Good Instructions (If sedation given, give patient instructions): Acute Diarrhea (ED), Enteritis (ED) Additional Instructions: Your diagnosis is enteritis. Likely related to a viral syndrome or infection. Continue with fluid hydration and use of Imodium for diarrhea. Return if worsening symptoms. Your gallbladder imaging and workup is consistent with prior gallbladder imaging workup from a few weeks ago. Continue with the plan to have a cholecystectomy on Saturday with Dr. Mcneal. Follow-up with your PCP if possible within the next 1 to 3 days and return if worsening symptoms. You are slightly faster than your normal heart rate is likely secondary to dehydration as well as the mild viral illness. Continue to monitor at home and return if worsening symptoms. Is patient prescribed a controlled substance at d/c from ED?: No Referrals: Richard German MD [Primary Care Provider] - 1-2 days Cody Mcneal MD [Medical Doctor] - 1-2 days Time of Disposition: 20:27
[2024-03-08 17:43] LABS: INR 0.9 (<1.2); Partial Thromboplastin Time 22.7 sec (22.0-30.0); Prothrombin Time 10.5 sec (10.0-12.5)
--- NOTE | 2024-03-08 18:14 | US ---
EXAMINATION TYPE: US gallbladder DATE OF EXAM: 03/08/2024 COMPARISON: CT & US 2023 CLINICAL INDICATION: Male, 78 years old with history of nausea, diarrhea. known GB issues; TECHNIQUE: Grayscale and color Doppler imaging of the right upper quadrant was performed. FINDINGS: EXAM MEASUREMENTS: Liver Length: 15.1 cm Gallbladder Wall: 0.6 cm CBD: 0.4 cm Right Kidney: 11.2 x 5.1 x 5.4 cm Pancreas: obscured by overlying midline bowel gas Liver: wnl Gallbladder: thickened wall Evidence for sonographic Rubalcava's sign: no CBD: visualized portion wnl, limited by overlying bowel gas Right Kidney: 2.0cm hypoechoic area mid pole IMPRESSION: Incompletely distended gallbladder with gallbladder wall thickening findings remain concerning for ac rik cholecystitis given choledocholithiasis seen on 02/27/2024 CT. [facility], , 03/08/2024 6:12 PM
[2024-03-08 18:23] LABS: Appearance,Urine Clear (Clear); Bilirubin,Urine Negative (Negative); Blood,Urine Negative (Negative); Color,Urine Colorless; Glucose,Urine (UA) 4+ (Negative); Ketones,Urine 1+ (Negative); Leukocyte Esterase,Urine Negative (Negative); Nitrite,Urine Negative (Negative); Protein,Urine Trace (Negative); Specific Gravity,Urine 1.026 (1.001-1.035); Urobilinogen,Urine <2.0 mg/dL (<2.0)
[2024-03-08 20:01] VITALS: BP 136/90; PULSE 84
--- NOTE | 2024-03-08 20:12 | CT ---
EXAMINATION TYPE: CT abdomen pelvis w con DATE OF EXAM: 03/08/2024 7:27 PM COMPARISON: 02/27/2024 CLINICAL INDICATION: Male, 78 years old with history of abd pain, diarrhea; DIARRHEA TECHNIQUE: Axial CT abdomen pelvis w con;Sagittal and coronal reformats were created on a separate w orkstation. Contrast used:80 ML mL of Isovue 300 with IV Contrast, (none if empty) Oral contrast used: without Oral Contrast (none if empty) CT DLP: 1193 mGycm, Automated exposure control for dose reduction was used. FINDINGS: LOWER CHEST: Scattered thin-walled cysts throughout the lungs. ABDOMEN LIVER: Unremarkable GALLBLADDER AND BILE DUCTS: Suspected gallstone in the gallbladder neck measuring 10 mm. The gallblad shagufta is nondistended. There is wall thickening circumferentially. PANCREAS: Unremarkable. SPLEEN: Unremarkable. ADRENAL GLANDS: Unremarkable. KIDNEYS AND URETERS: No evidence of hydronephrosis or renal calculus. The ureters are unremarkable. PELVIS BLADDER: No evidence for wall thickening or mass given limitations of exam. REPRODUCTIVE: Prostate is enlarged in size measuring 4.8 cm in transverse dimension. ABDOMEN & PELVIS STOMACH AND BOWEL: No evidence of bowel obstruction. Scattered colonic diverticula. Large stool throu ghout the colon noted. Prominent loops of small bowel in the mid abdomen without transition point. Th ere is engorgement of the vasa recta within the small bowel loops. PERITONEUM/RETROPERITONEUM: No evidence of pneumoperitoneum or free fluid. VASCULATURE: No evidence of aortic aneurysm. MUSCULOSKELETAL: No acute osseous abnormalities LYMPH NODES: No gross evidence for lymphadenopathy. SOFT TISSUE/ABDOMINAL WALL: Unremarkable IMPRESSION: 1. Moderate stool throughout the colon compatible with provided history of diarrhea 2. Dilated small bowel loops in the abdomen without transition point correlate for enteritis 3. Colonic diverticulosis. 4. Prostatomegaly, correlate serum PSA. 5. There remains a gallstone in the gallbladder neck/cystic duct with wall thickening of the gallbla dder as seen on prior imaging, further workup with HIDA scan for complete workup for cystic duct obst ruction.. [facility], , 03/08/2024 8:10 PM
[2024-03-08] MEDS: LOPERAMIDE 2 MG CAP PO STA (20:13)
[2024-03-08] MEDS: DIPHENOX-ATROP STARTER PACK 8 TAB BTL PO STA (20:34)
== END 2024-03-08 20:42 | disposition home or self-care (01) ==
LOC: EC 16:31
DX: K57.30 Diverticulosis of large intestine without perforation or abscess without bleeding (principal); K52.9 Noninfective gastroenteritis and colitis, unspecified; K80.20 Calculus of gallbladder without cholecystitis without obstruction; E86.0 Dehydration; Z90.49 Acquired absence of other specified parts of digestive tract; Z11.52 Encounter for screening for COVID-19
CPT/HCPCS: 36415; 93005; 80053; 82150; 83605; 83690; 83735; 85025; 85610; 85730; 81003; 87636; 76705; 74177; 99284; 96374; 96375; 96361; J2405; Q9967; J2470

== ENCOUNTER → 2024-03-13 | Day surgery (SDC) | payer MEDICARE ==
[2024-03-09 09:58] VITALS: BMI 28.8
[~2024-03-13] MED LIST changes: +ACETAMINOPHEN TAB 500 MG TAB PO PRN; +DEXAMETHASONE SOD PHOSPHATE 4 MG/ML 1 ML VIAL IV ONE; +HEPARIN SODIUM,PORCINE 5,000 UNIT/ML 1 ML VIAL SQ PRN; +HYDROmorphone 0.5 MG/0.5 ML SYRINGE IVP PRN; -LIDOCAINE 1% (10MG/ML) FOR IV START INTRADERMA PRN; +MIDAZOLAM 2 MG/2 ML VIAL IV PRN; +ONDANSETRON 4 MG/2 ML VIAL IVP ONE
[2024-03-13] MEDS: IV FLUID CONTINUATION 1,000 ML IV ONE (08:56)
--- NOTE | 2024-03-13 09:48 | P.PN ---
Progress Note - Text Progress Note Date: 03/13/24 Patient presents today for his cholecystectomy. Unfortunately he took his Eliquis yesterday both doses. Surgery will be canceled today. We will try to add the case on for Saturday.
== END ==
LOC: OR 08:31
PROVIDERS: ATTEND Surgery
DX: Z53.09 Procedure and treatment not carried out because of other contraindication (principal); K81.1 Chronic cholecystitis

== ENCOUNTER 2024-03-16 10:58 | Day surgery (SDC) | payer MEDICARE ==
[2024-03-16] MEDS: IV FLUID CONTINUATION 1,000 ML IV ONE (11:20)
[2024-03-16 11:36] LABS: Glucose,Whole Blood 101 mg/dL (70-110)
[2024-03-16] MEDS: ACETAMINOPHEN TAB 500 MG TAB PO PRN (11:45)
[2024-03-16] MEDS ORDERED: LACTATED RINGERS 1,000 ML IV SCH (11:45)
[2024-03-16] MEDS: HEPARIN SODIUM,PORCINE 5,000 UNIT/ML 1 ML VIAL SQ PRN (11:46)
[2024-03-16] MEDS: DEXAMETHASONE SOD PHOSPHATE 4 MG/ML 1 ML VIAL IVP STA (11:46)
[2024-03-16] MEDS: ONDANSETRON 4 MG/2 ML VIAL IVP STA (11:46)
--- NOTE | 2024-03-16 12:39 | P.HPADDEND ---
H&P Addendum H&P Addendum Date: 03/16/24 Please refer to history and physical and addendum from last Saturday. Patient here today for elective cholecystectomy. His surgery on Saturday was canceled because he took his Eliquis that morning. No changes to the previous H&P.
[2024-03-16] MEDS ORDERED: NEOSTIGMINE 1 MG/ML 10 ML VIAL ONE (13:04)
[2024-03-16] MEDS ORDERED: ROCURONIUM 10 MG/ML (5 ML VIAL) IV ONE (13:04)
[2024-03-16] MEDS ORDERED: SUCCINYLCHOLINE CHLORIDE 200 MG/10 ML VIAL IV ONE (13:04)
[2024-03-16] MEDS ORDERED: PROPOFOL 10 MG/ML 20 ML VIAL IV ONE (13:04)
[2024-03-16] MEDS ORDERED: fentaNYL (PF) 50 MCG/ML 2 ML AMP ONE (13:04)
[2024-03-16] MEDS ORDERED: LIDOCAINE 1% INJ 10MG/ML (20 ML MDV) ONE (13:04)
[2024-03-16] MEDS ORDERED: GLYCOPYRROLATE 0.2 MG/ML 2 ML VIAL ONE (13:04)
[2024-03-16] MEDS: BUPIVACAINE (PF) 0.25% 30 ML VIAL SQ ONE (13:30)
[2024-03-16] MEDS: LACTATED RINGERS 1,000 ML IV ONE (14:13)
--- NOTE | 2024-03-16 14:55 | P.OP ---
Date of Procedure: 03/16/24 Procedure(s) Performed: PREOPERATIVE DIAGNOSIS: Chronic cholecystitis POSTOPERATIVE DIAGNOSIS: Same PROCEDURE: Laparoscopic cholecystectomy SURGEON: Elizabet EBL: 25 cc ANESTHESIA: Gen. COMPLICATIONS: None OPERATIVE PROCEDURE: The patient was brought and placed on the operating room table in the supine position. The patient was placed under general anesthesia at that time. The abdomen was prepped and draped in the usual sterile fashion. A small vertical infraumbilical incision was made. The fascia was grasped with the Amy forceps. The fascia was retracted anteriorly. The Veress needle was advanced into the peritoneal cavity. The saline drop test was normal. Insufflation took place up to 15 mmHg. A 5 mm optical trocar was advanced and the peritoneal cavity. 2 additional 5 mm trochars were placed in the right upper quadrant under direct visualization. A 12 mm trocar was advanced into the epigastric incision site. The gallbladder had impressive chronic inflammatory changes present. There were dense adhesions particularly from the mid gallbladder inferiorly. Multiple clips were used on some of these adhesive bands as it was unclear whether they may have represented small vessels. The infundibulum was able to be carefully dissected. There appeared to be a stone impacted in the distal infundibulum just at the cystic duct junction. There was edema present at the cystic duct. The critical view of safety was achieved after blunt dissection. The cystic duct was then divided after placement of a 2-0 Ethibond stitch and a 12 mm clip on the patient's side. The suture was tied down using the tie knot device. The cystic artery was then divided using a 12 mm clipper. A second clip fell off of the cystic artery and I placed a 0 PDS vessel loop on the cystic artery at that time just beneath the clip. The gallbladder was then removed from the liver bed using electrocautery. The gallbladder was then removed from the epigastric trocar site with an Endo Catch bag. The gallbladder fossa was irrigated with saline. There was no evidence of any bleeding or biliary drainage seen. The fascia at the 12 millimeter site was closed using a Ray-Mony 0 Vicryl stitch. The trochars were then removed. The skin at all 4 sites was closed using a 4-0 Monocryl stitch. Skin glue was utilized on the incision sites. At the end of this procedure the sponge and needle counts were correct. DISPOSITION: Stable to the recovery room
[2024-03-16] MEDS: HYDROmorphone 0.5 MG/0.5 ML SYRINGE IVP STA (15:13)
[2024-03-16] MEDS: hydrALAZINE HCL 20 MG/ML 1 ML VIAL IVP STA (15:20)
[2024-03-16 15:22] VITALS: TEMP 96.9
[2024-03-16 15:43] LABS: Glucose,Whole Blood 113 mg/dL (70-110)
[2024-03-16 16:31] VITALS: BP 142/73; PULSE 69; RESP 15
[2024-03-16] MEDS: IBUPROFEN 600 MG TAB PO SCH (16:42)
[2024-03-16] MEDS ORDERED: ACETAMINOPHEN TAB 325 MG TAB PO SCH (18:00)
== END 2024-03-16 17:05 | disposition home or self-care (01) ==
LOC: OR 10:58
PROVIDERS: ATTEND Surgery
DX: K80.10 Calculus of gallbladder with chronic cholecystitis without obstruction (principal); N28.9 Disorder of kidney and ureter, unspecified; I26.99 Other pulmonary embolism without acute cor pulmonale; Z79.899 Other long term (current) drug therapy
CPT/HCPCS: 47562; 88304; J0330; J0360; J1644; J1100; J2710; J0690; J2405; J2003; J3010; J2704; J1171; J0665; J1596

== ENCOUNTER 2024-09-29 04:16 | Emergency (ER) | payer MEDICARE ==
[2024-09-29 04:21] VITALS: TEMP 97.7
--- NOTE | 2024-09-29 04:32 | ED ---
Recheck HPI <Anselmo Alegria - Last Filed: 09/29/24 07:20> - General Source: patient, RN notes reviewed, old records reviewed Mode of arrival: ambulatory Limitations: no limitations - History of Present Illness MD Complaint: other (Low heart rate) -: hour(s) Returns Today for: other (Low heart rate) Symptoms Since Prior Visit: no new symptoms Associated Symptoms: none <Delano Leyva - Last Filed: 10/06/24 00:23> - General Chief Complaint: Recheck/Abnormal Lab/Rx Stated Complaint: Low heart rate Time Seen by Provider: 09/29/24 04:31 - History of Present Illness Initial Comments: This is a 79-year-old male to the ER for evaluation of bradycardia. Patient noticed on his Apple Watch today that he was bradycardic and presents to the ER for evaluation of bradycardia, patient is asymptomatic aside from low heart rate (Delano Leyva) - Related Data Home Medications Medication Instructions Recorded Confirmed Apixaban [Eliquis] 5 mg PO BID 07/24/18 03/16/24 Sildenafil Citrate 60 mg PO DAILY PRN 07/24/18 03/16/24 Tamsulosin HCl [Flomax] 0.8 mg PO HS 07/24/18 03/16/24 Dapagliflozin Propanediol [Farxiga] 5 mg PO DAILY 02/03/23 03/16/24 Ergocalciferol (Vitamin D2) 1,250 mcg PO Q30D 02/03/23 03/16/24 [Drisdol (50,000 Iu)] Finasteride [Proscar] 5 mg PO HS 02/03/23 03/16/24 Propafenone [Rythmol] 150 mg PO BID 02/03/23 03/16/24 Rosuvastatin [Crestor] 20 mg PO HS 02/03/23 03/16/24 Previous Rx's Medication Instructions Recorded oxyCODONE HCL [OxyIR] 5 mg PO Q6H PRN 3 Days #6 tab 03/16/24 Allergies Allergy/AdvReac Type Severity Reaction Status Date / Time No Known Allergies Allergy Verified 09/29/24 04:21 Review of Systems ROS Other: All systems not noted in ROS Statement are negative. <Anselmo Alegria - Last Filed: 09/29/24 07:20> ROS Other: All systems not noted in ROS Statement are negative. <Delano Leyva - Last Filed: 10/06/24 00:23> ROS Statement: Those systems with pertinent positive or pertinent negative responses have been documented in the HPI. Past Medical History Past Medical History: Atrial Fibrillation, Diabetes Mellitus, Hyperlipidemia, Prostate Disorder, Pulmonary Embolus (PE), Sleep Apnea/CPAP/BIPAP Additional Past Medical History / Comment(s): HAS BEEN HAVING DIARRHEA FOR PAST 6 WEEKS seen in ER last weekend 03/08/24 received fluids and antidiarrheals fine now per pt.. pre diabetic. BPH, wears cpap History of Any Multi-Drug Resistant Organisms: None Reported Past Surgical History: Appendectomy, Cholecystectomy, Tonsillectomy Additional Past Surgical History / Comment(s): procedure to dissolve blood clots in the lung. COLONOSCOPY Past Anesthesia/Blood Transfusion Reactions: No Reported Reaction Past Psychological History: No Psychological Hx Reported Smoking Status: Never smoker Past Alcohol Use History: None Reported Past Drug Use History: None Reported - Past Family History Mother Family Medical History: CVA/TIA <Delano Leyva - Last Filed: 10/06/24 00:23> General Exam Limitations: no limitations General appearance: alert, in no apparent distress Head exam: Present: atraumatic, normocephalic, normal inspection Eye exam: Present: normal appearance, PERRL, EOMI. Absent: scleral icterus, conjunctival injection, periorbital swelling ENT exam: Present: normal exam, mucous membranes moist Neck exam: Present: normal inspection. Absent: tenderness, meningismus, lymphadenopathy Respiratory exam: Present: normal lung sounds bilaterally. Absent: respiratory distress, wheezes, rales, rhonchi, stridor Cardiovascular Exam: Present: regular rate, normal rhythm, normal heart sounds. Absent: systolic murmur, diastolic murmur, rubs, gallop, clicks GI/Abdominal exam: Present: soft, normal bowel sounds. Absent: distended, tenderness, guarding, rebound, rigid Extremities exam: Present: normal inspection, full ROM, normal capillary refill. Absent: tenderness, pedal edema, joint swelling, calf tenderness Back exam: Present: normal inspection Neurological exam: Present: alert, oriented X3, CN II-XII intact Psychiatric exam: Present: normal affect, normal mood Skin exam: Present: warm, dry, intact, normal color. Absent: rash <Delano Leyva - Last Filed: 10/06/24 00:23> Course <Delano Leyva - Last Filed: 10/06/24 00:23> Vital Signs 09/29/24 09/29/24 09/29/24 04:19 07:21 07:38 Temperature 97.7 F Pulse Rate 52 L 45 L 41 L Respiratory 18 16 Rate Blood Pressure 160/96 165/70 O2 Sat by Pulse 97 97 Oximetry - Reevaluation(s) Reevaluation #1: 09/29/24 06:18 Medical records reviewed (Delano Leyva) Reevaluation #2: 09/29/24 06:18 Heart rate remains in the 50s sinus (Delano Leyva) Reevaluation #3: 09/29/24 06:18 Patient informed of results questions answered (Delano Leyva) Reevaluation #4: Was pt. sent in by a medical professional or institution (, PA, GUM ROLLING MACHINE TENDER, urgent care, hospital, or alf...) When possible be specific @ -no Did you speak to anyone other than the patient for history (EMS, parent, family, police, friend...)? What history was obtained from this source @ -no Did you review nursing and triage notes (agree or disagree)? Why? @ -agree Are old charts reviewed (outside hosp., previous admission, EMS record, old EKG, old radiological studies, urgent care reports/EKG's, alf records)? Report findings @ -yes Differential Diagnosis (chest pain, altered mental status, abdominal pain women, abdominal pain men, vaginal bleeding, weakness, fever, dyspnea, syncope, headache, dizziness, GI bleed, back pain, seizure, CVA, palpatations, mental health, musculoskeletal)? @ -prior EKG interpreted by me (3pts min.). @ -yes X-rays interpreted by me (1pt min.). @ -no CT interpreted by me (1pt min.). @ -no U/S interpreted by me (1pt. min.). @ -no What testing was considered but not performed or refused? (CT, X-rays, U/S, labs)? Why? @ -none What meds were considered but not given or refused? Why? @ -none Did you discuss the management of the patient with other professionals (professionals i.e. , PA, GUM ROLLING MACHINE TENDER, lab, RT, psych nurse, social media intern, high scaler, teacher, forward air controller/air officer, rehabilitation caseworker)? Give summary @ -no Was smoking cessation discussed for >3mins.? @ -no Was critical care preformed (if so, how long)? @ -no Were there social determinants of health that impacted care today? How? (Homelessness, low income, unemployed, alcoholism, drug addiction, transportation, low edu. Level, literacy, decrease access to med. care, half-way, rehab)? @ -none Was there de-escalation of care discussed even if they declined (Discuss DNR or withdrawal of care, Hospice)? DNR status @ -no What co-morbidities impacted this encounter? (DM, HTN, Smoking, COPD, CAD, Cancer, CVA, ARF, Chemo, Hep., AIDS, mental health diagnosis, sleep apnea, morbid obesity)? @ -none Was patient admitted / discharged? Hospital course, mention meds given and route, prescriptions, significant lab abnormalities, going to OR and other pertinent info. @ - 79 male to ER for bradycardia found on his Apple Watch, patient will follow-up with cardiology normal blood pressure here in the ER EKG is sinus he does have underlying A-fib and is on antiarrhythmics Discharge Undiagnosed new problem with uncertain prognosis? @ -no Drug Therapy requiring intensive monitoring for toxicity (Heparin, Nitro, Insulin, Cardizem)? @ -no Were any procedures done? @ -no Diagnosis/symptom? @ -Bradycardia Acute, or Chronic, or Acute on Chronic? @ -Acute Uncomplicated (without systemic symptoms) or Complicated (systemic symptoms)? @ -Complicated Side effects of treatment? @ -no Exacerbation, Progression, or Severe Exacerbation? @ -exacerbation Poses a threat to life or bodily function? How? (Chest pain, [place], [place], pneumonia, PE, COPD, DKA, ARF, appy, cholecystitis, CVA, Diverticulitis, Homicidal, Suicidal, threat to staff... and all critical care pts) @ -yes with arrhythmia (Delano Leyva) Reevaluation #5: Differential Palpitations Ventricular arrhythmias, atrial arrhythmias, myocardial infarction, anemia, thyrotoxicosis, electrolyte imbalance, hypokalemia, pulmonary embolism, pul monary disease, drugs, alcohol, anxiety, stress.... This is not meant to be an all-inclusive list. (Delano Leyva) Medical Decision Making - Lab Data Result diagrams: 09/29/24 04:33 09/29/24 04:33 <ItaliatonikendrickAnselmo Banks - Last Filed: 09/29/24 07:20> - Lab Data Result diagrams: 09/29/24 04:33 09/29/24 04:33 - EKG Data -: EKG Interpreted by Me (EKG sinus bradycardia 52 MN 192 QRS 105 QTc 418) <Delano Leyva - Last Filed: 10/06/24 00:23> - Medical Decision Making 79 male to ER for bradycardia found on his Apple Watch, patient will follow-up with cardiology normal blood pressure here in the ER EKG is sinus he does have underlying A-fib and is on antiarrhythmics (Delano Leyva) - Lab Data Lab Results 09/29/24 09/29/24 09/29/24 Range/Units 04:33 04:33 04:33 WBC 6.97 (4.50-10.00) 10*3/uL RBC 4.13 L (4.40-5.60) 10*6/uL Hgb 13.7 (13.0-17.0) g/dL Hct 40.2 (39.6-50.0) % MCV 97.3 H (80.0-97.0) fL MCH 33.2 H (27.0-32.0) pg MCHC 34.1 (32.0-37.0) g/dL Plt Count 143 (140-440) 10*3/uL MPV 10.6 (9.5-12.2) fL Immature Gran % (Auto) 0.1 % Neutrophils % 58.1 % Lymphocytes % 28.7 % Monocytes % 9.8 % Eosinophils % 2.7 % Basophils % 0.6 % Immature Gran # 0.01 (0.00-0.04) 10*3/uL Neutrophils # 4.05 (1.80-7.70) 10*3/uL Lymphocytes # 2.00 (0.90-5.00) 10*3/uL Monocytes # 0.68 (0.20-1.00) 10*3/uL Eosinophils # 0.19 (0.04-0.35) 10*3/uL Basophils # 0.04 (0.00-0.10) 10*3/uL Immature Plt Fraction 2.2 (1.1-6.1) % PT 11.5 (10.0-12.5) sec INR 1.0 (<1.2) APTT 22.9 (22.0-30.0) sec Sodium 141 (137-145) mmol/L Potassium 4.0 (3.5-5.1) mmol/L Chloride 109 H (98-107) mmol/L Carbon Dioxide 20 L (22-30) mmol/L Anion Gap 12 mmol/L BUN 23 H (9-20) mg/dL Creatinine 1.13 (0.66-1.25) mg/dL Est GFR (CKD-EPI)AfAm 72 (>60 ml/min/1.73 sqM) Est GFR (CKD-EPI)NonAf 62 (>60 ml/min/1.73 sqM) Glucose 124 H (74-99) mg/dL Plasma Lactic Acid Desean (0.7-2.0) mmol/L Calcium 9.2 (8.4-10.2) mg/dL Phosphorus 3.8 (2.5-4.5) mg/dL Magnesium 1.9 (1.6-2.3) mg/dL Total Bilirubin 0.9 (0.2-1.3) mg/dL AST 21 (17-59) U/L ALT 26 (4-49) U/L Alkaline Phosphatase 73 (38-126) U/L Troponin I (0.000-0.034) ng/mL NT-Pro-B Natriuret Pep 225 pg/mL Total Protein 6.8 (6.3-8.2) g/dL Albumin 3.8 (3.5-5.0) g/dL 09/29/24 09/29/24 Range/Units 04:33 04:33 WBC (4.50-10.00) 10*3/uL RBC (4.40-5.60) 10*6/uL Hgb (13.0-17.0) g/dL Hct (39.6-50.0) % MCV (80.0-97.0) fL MCH (27.0-32.0) pg MCHC (32.0-37.0) g/dL Plt Count (140-440) 10*3/uL MPV (9.5-12.2) fL Immature Gran % (Auto) % Neutrophils % % Lymphocytes % % Monocytes % % Eosinophils % % Basophils % % Immature Gran # (0.00-0.04) 10*3/uL Neutrophils # (1.80-7.70) 10*3/uL Lymphocytes # (0.90-5.00) 10*3/uL Monocytes # (0.20-1.00) 10*3/uL Eosinophils # (0.04-0.35) 10*3/uL Basophils # (0.00-0.10) 10*3/uL Immature Plt Fraction (1.1-6.1) % PT (10.0-12.5) sec INR (<1.2) APTT (22.0-30.0) sec Sodium (137-145) mmol/L Potassium (3.5-5.1) mmol/L Chloride (98-107) mmol/L Carbon Dioxide (22-30) mmol/L Anion Gap mmol/L BUN (9-20) mg/dL Creatinine (0.66-1.25) mg/dL Est GFR (CKD-EPI)AfAm (>60 ml/min/1.73 sqM) Est GFR (CKD-EPI)NonAf (>60 ml/min/1.73 sqM) Glucose (74-99) mg/dL Plasma Lactic Acid Desean 0.9 (0.7-2.0) mmol/L Calcium (8.4-10.2) mg/dL Phosphorus (2.5-4.5) mg/dL Magnesium (1.6-2.3) mg/dL Total Bilirubin (0.2-1.3) mg/dL AST (17-59) U/L ALT (4-49) U/L Alkaline Phosphatase (38-126) U/L Troponin I <0.012 (0.000-0.034) ng/mL NT-Pro-B Natriuret Pep pg/mL Total Protein (6.3-8.2) g/dL Albumin (3.5-5.0) g/dL Disposition <[facility] - Last Filed: 09/29/24 07:20> Is patient prescribed a controlled substance at d/c from ED?: No Time of Disposition: 06:00 <Delano Leyav - Last Filed: 10/06/24 00:23> Clinical Impression: Bradycardia Disposition: HOME SELF-CARE Condition: Good Instructions (If sedation given, give patient instructions): Bradycardia (ED) Additional Instructions: Please decrease your propafenone dose to 75 mg twice daily and follow-up with your audiometric technician. Referrals: Richard German MD [Primary Care Provider] - 1-2 days Michelle Tadeo MD [STAFF PHYSICIAN] - 1-2 days
[2024-09-29 04:46] LABS: Basophils # (A) 0.04 10*3/uL (0.00-0.10); Basophils % (A) 0.6 %; Eosinophils # (A) 0.19 10*3/uL (0.04-0.35); Eosinophils % (A) 2.7 %; HCT 40.2 % (39.6-50.0); HGB 13.7 g/dL (13.0-17.0); Immature Platelet Fraction 2.2 % (1.1-6.1); Lymphocytes # (A) 2.00 10*3/uL (0.90-5.00); Lymphocytes % (A) 28.7 %; MCH 33.2 pg (27.0-32.0); MCHC 34.1 g/dL (32.0-37.0); MCV 97.3 fL (80.0-97.0); Monocytes # (A) 0.68 10*3/uL (0.20-1.00); Monocytes % (A) 9.8 %; Neutrophils # (A) 4.05 10*3/uL (1.80-7.70); Neutrophils % (A) 58.1 %; Platelet Count 143 10*3/uL (140-440); RBC 4.13 10*6/uL (4.40-5.60); RDW 12.5 % (11.5-14.5); WBC 6.97 10*3/uL (4.50-10.00)
[2024-09-29] MEDS: SODIUM CHLORIDE 0.9% 1,000 ML IV SCH (05:16)
[2024-09-29 05:18] LABS: ALT 26 U/L (4-49); AST 21 U/L (17-59); African American GFR (CKD) 72 (>60 ml/min/1.73 sqM); Albumin 3.8 g/dL (3.5-5.0); Alkaline Phosphatase 73 U/L (38-126); Anion Gap 12 mmol/L; Blood Urea Nitrogen 23 mg/dL (9-20); Calcium 9.2 mg/dL (8.4-10.2); Carbon Dioxide 20 mmol/L (22-30); Chloride 109 mmol/L (98-107); Glucose 124 mg/dL (74-99); Magnesium 1.9 mg/dL (1.6-2.3); Non-African American GFR(CKD) 62 (>60 ml/min/1.73 sqM); Potassium 4.0 mmol/L (3.5-5.1); Sodium 141 mmol/L (137-145); Total Protein 6.8 g/dL (6.3-8.2)
[2024-09-29 05:23] LABS: INR 1.0 (<1.2); Partial Thromboplastin Time 22.9 sec (22.0-30.0); Prothrombin Time 11.5 sec (10.0-12.5)
[2024-09-29 05:25] LABS: NT-Pro-B-Type Natriuretic Pept 225 pg/mL
[2024-09-29 07:46] VITALS: BP 165/70; PULSE 41; RESP 16
== END 2024-09-29 07:58 | disposition home or self-care (01) ==
LOC: EC 04:16
DX: R00.1 Bradycardia, unspecified (principal)
CPT/HCPCS: 36415; 80053; 83605; 83735; 83880; 84100; 84484; 85025; 85610; 85730; 93005; 99284